=== PATIENT | female | born 1945 | race Caucasian/White ===

== ENCOUNTER 2017-11-11 16:42 | Inpatient (IN) | payer MEDICARE, OTHER, SELFPAY ==
[2017-11-11] VITALS (7 sets, daily range): BP systolic 105–143; BP diastolic 65–101; PULSE 63–84; RESP 16–19; TEMP 36.4–38.1; O2SAT 96–98; BMI 34.0; BMI 32.2
--- NOTE | 2017-11-11 16:57 | EKG12_ITS ---
Test Reason : WEAKNESS Blood Pressure : / mmHG Vent. Rate : 081 BPM Atrial Rate : 081 BPM P-R Int : 188 ms QRS Dur : 080 ms QT Int : 390 ms P-R-T Axes : 070 006 055 degrees QTc Int : 453 ms Sinus rhythm with marked sinus arrhythmia Otherwise normal ECG Confirmed by KRISTY ROMEO, ARACELI ([id number]), online editor BRYANT GONGORA ([id number]) on 11/12/2017 1:45:58 PM Referred By: PAWEL/AMY Confirmed By:ARACELI WAGNER MD
--- NOTE | 2017-11-11 16:57 | CT_ITS ---
STUDY: CT BRAIN WITHOUT CONTRAST REASON FOR EXAM: Female, 72 years old. Confusion and right-sided weakness. RADIATION DOSAGE (If Supplied By Facility): CTDIvol = ( 60.81 ) mGy, DLP = ( 1135.50 ) mGycm TECHNIQUE: Transaxial CT imaging of the brain was performed without administration of intravenous contrast material. Multiplanar reformations are submitted for interpretation. Individualized dose optimization techniques were used for this CT. COMPARISON: CT of the head dated March 31, 2014. FINDINGS: Normal soft tissue structures. There is hyperostosis frontalis internus. There is mild cerebral atrophy with widening of the extra-axial spaces and ventricular dilatation. There are areas of decreased attenuation within the white matter tracts of the supratentorial brain, consistent with microvascular disease changes. Normal basal ganglia and thalami. Normal brainstem. Normal cerebellum. There is no intracranial hemorrhage. There is mild atherosclerotic calcification of intracranial arteries. Normal visualized paranasal sinuses. CT/Brain/Head without Contrast IMPRESSION: 1. Chronic involutional changes of the brain. 2. No CT evidence of acute intracranial hemorrhage. Electronically Signed: Jessie Gibson MD at 18:32 EST , Service support ,
--- NOTE | 2017-11-11 17:02 | ED.VISSUMM ---
- ER Visit Summary Date of Service: 11/11/17 Chief Complaint: Weakness History of Present Illness: The patient is a 72 F sent over from primary care physician's office with progressive weakness for the past 1 week, worse over the past 2 or 3 days. They advised that she is a history of prior stroke and they are not sure she may be having a new stroke. Patient complains of generalized weakness with a cough. She does report having a low-grade fever. Physical Examination: Blood pressure is 150/101, temperature 100.5, heart rate 84, respiratory rate 18, pulse ox 96% on 4 L nasal cannula. She is chronically on 4 L of oxygen secondary to pulmonary fibrosis. Head and neck examination reveals mild left facial droop. Heart is regular rate and rhythm. Lung sounds are grossly clear. Abdomen is soft nontender. NIH score is 1 for left facial droop. She has good strength and sensation in the extremities on testing. Test Results: EKG is sinus 81 with no sign of acute ischemia. Two-view chest x-ray shows changes consistent with COPD and pulmonary fibrosis. No acute disease noted. CT the head shows chronic involutional changes. CBC is significant only for platelet count of 143,000. Chemistry studies are normal. Troponin and lactate are normal. Influenza swab is negative. Blood cultures were sent. Emergency Department Course and Treatment: Patient was given Tylenol. On repeat evaluation temperature is 99.3. Per the , urine was checked in the PCPs office and was negative for infection. At this time patient has a fever with uncertain etiology. She also has generalized weakness and decline with left facial droop. She will be admitted for further workup and evaluation. Treatment Plan: [] Disposition: Admit Impression: 1. Fever, uncertain etiology 2. Weakness 3. Left facial droop This note was generated with [employer] dictation software. It may contain incorrect words, spelling, and punctuation that were not noted in review of the chart prior to signing ED Disposition - Plan for ED Patient: Chief Complaint: Weakness Referrals: Elsa Velázquez DO [Primary Care Provider] -
[2017-11-11] MEDS: 0.9% Normal Saline 1,000 ML 150 ML IV (17:17)
[2017-11-11] MEDS: Acetaminophen 325 MG Tablet 650 MG PO (17:17)
[2017-11-11 17:43] LABS: Absolute Lymphocyte Count 1.84 X10^3/ul (0.83-4.51); Absolute Neutrophil Count 4.3 X10^3/uL (2.0-7.7); Basophil# 0.02 X10^3/uL; Basophil% 0.3 % (0-1); Eosinophil# 0.14 X10^3/uL; Eosinophils% 2.1 % (0-5); Hematocrit 39.2 % (37-47); Hemoglobin 13.2 g/dl (12.0-15.0); Lymphocyte # 1.84 X10^3/ul (4.0); Lymphocyte % 27.6 % (19-41); Mean Corp Hgb Conc 33.7 g/gl (32-36); Mean Corpuscular Hgb 32.7 pg (27.0-32.0); Monocyte# 0.35 X10^3/uL; Monocyte% 5.3 % (0-10); Neutrophil # 4.31 X10^3/uL (2.7-7.7); Neutrophil % 64.7 % (47-70); POSITIVE COUNT NO; POSITIVE DIFFERENTIAL NO; POSITIVE MORPHOLOGY NO; Platelet Count 143 K/mm3 (150-450); RBC Distribution Width CV 13.9 % (11.6-14.6); RBC Distribution Width SD 48.9 fl (35.1-43.9); Red Blood Count 4.04 M/mm3 (4.2-5.4); White Blood Count 6.7 K/mm3 (4.4-11.0)
[2017-11-11 17:46] LABS: Lactic Acid 1.8 mmol/L (0.4-2.0)
[2017-11-11 17:54] LABS: Anion Gap 8 (5-15); BUN 17 mg/dL (7-18); BUN/Creat Ratio 23.4 RATIO (10-20); Calcium,Total 9.4 mg/dL (8.5-10.1); Chloride 104 mmol/L (98-107); Creatinine, Serum 0.73 mg/dL (0.55-1.02); EST Glomerular Filtration Rate 84 mL/min (>60); Est Glom Filt Rate - Afr Amer 101 mL/min (>60); Estimated Creatinine Clearance 44.56 ml/min; Glucose 98 mg/dL (74-106); Potassium 4.1 mmol/L (3.5-5.1); Sodium Level 141 mmol/L (136-145)
--- NOTE | 2017-11-11 17:58 | RAD_ITS ---
STUDY: X-RAY CHEST REASON FOR EXAM: Female, 72 years old. Weakness with cough. TECHNIQUE: PA and lateral views of the chest. COMPARISON: May 23, 2016. FINDINGS: There is hyperinflation of the lungs consistent with chronic obstructive lung disease (COPD). There is interstitial thickening visible within the right upper lobe and right and left lung bases probably secondary to pulmonary fibrosis. There is a calcified nodule within the posterior lung best seen on the lateral radiograph. There is unchanged since the previous study. There is no demonstrated pleural abnormality. Normal size heart. There are calcified mediastinal and hilar lymph nodes. Normal visualized pulmonary arteries. There is atherosclerotic tortuosity of the aortic arch and descending thoracic aorta. There is demineralization of the osseous structures. There is increased thoracic kyphosis. Normal visualized ribs, clavicles, and shoulders. There is no demonstrated abnormality of the visualized soft tissue structures of the upper abdomen. RAD/Chest PA and Lateral IMPRESSION: 1. COPD without radiographic evidence of acute cardiopulmonary disease. 2. Probable sequela of pulmonary fibrosis. Electronically Signed: Jessie Gibson MD at 18:49 EST , Service support ,
--- NOTE | 2017-11-11 20:13 | PCM.HP.STD ---
Problem List (1) Metabolic encephalopathy Status: Acute (2) Sinusitis Status: Acute (3) Dementia Status: Chronic Qualifiers: Dementia type: Alzheimer's disease Alzheimer's disease onset: unspecified onset Dementia behavioral disturbance: without behavioral disturbance Qualified Code(s): G30.9 - Alzheimer's disease, unspecified; F02.80 - Dementia in other diseases classified elsewhere without behavioral disturbance (4) Cough productive of purulent sputum Status: Acute (5) Shortness of breath Status: Acute (6) Bipolar disorder Status: Chronic (7) Chronic obstructive lung disease Status: Chronic (8) Esophageal reflux Status: Chronic (9) Essential tremor Status: Chronic (10) Hx of breast cancer Status: Chronic (11) Hypothyroidism Status: Chronic (12) Irritable bowel syndrome Status: Chronic (13) Pulmonary fibrosis Status: Chronic History of Present Illness Date of Admission: 11/11/17 Chief Complaint: confusion The patient is a 72 year old F presents w confusion. Pt has dementia, but over the past week, has been having fragmented sentences and more frequently asking what they were talking about. brought her to the ED for evaluation. In ED her labs were unremarkable, CXR showed chronic changes, but she did have a fever of 38.1 Pt has a myriad of complaints, many are chronic (N/V/D, abd pain, dysuria, sinus tenderness). also notes pt having increased falls. [] Past Medical History Past Medical History (Chronic Problems): Chronic Problems Dementia (Chronic) Hypothyroidism (Chronic) Hx of breast cancer (Chronic) Esophageal reflux (Chronic) Chronic obstructive lung disease (Chronic) Bipolar disorder (Chronic) Pulmonary fibrosis (Chronic) Essential tremor (Chronic) Irritable bowel syndrome (Chronic) Allergies ragweed pollen Allergy (Verified 02/04/17 17:40) Chest tightness Home Medications: Ambulatory Orders Medication Instructions Recorded Albuterol Aerosols [Ventolin 2.5 mg INHALATION Q6HWA.RT 05/18/15 Aerosols] Albuterol Sulfate [Proventil Hfa] 6.7 gm IH Q6H PRN PRN 05/18/15 Atorvastatin Calcium [Lipitor] 10 mg PO QHS 05/18/15 Buspirone HCl 10 mg PO TID 05/18/15 Furosemide 20 mg PO DAILY 05/18/15 Gabapentin [Neurontin] 400 mg PO TIDCM 05/18/15 Ipratropium/Albuterol Respimat 1 puff INHALATION 4X/DAY PRN PRN 05/18/15 [Combivent Respimat Inhal [place]] Levothyroxine Sodium [Levoxyl] 125 mcg PO MOTUWETHFR 05/18/15 Lorazepam [Ativan] 1 mg PO BID 05/18/15 Oxybutynin Chloride [Ditropan Xl] 10 mg PO DAILY 05/18/15 Pantoprazole Sodium [Protonix] 40 mg PO BID 05/18/15 Sertraline HCl [Zoloft] 150 mg PO DAILY 05/18/15 Trazodone HCl [Desyrel] 200 tab PO QHS 05/18/15 Ondansetron [Zofran Odt] 4 mg PO Q8H PRN PRN #10 tablet 05/23/16 Zolpidem Tartrate [Ambien] 10 mg PO QHS PRN 05/23/16 Aspirin [Aspirin, Baby] 81 mg PO DAILY@0800 11/11/17 Benztropine Mesylate 1 mg PO TID 11/11/17 Diphenoxylate HCl/Atropine 1 tab PO 4X/DAY PRN PRN 11/11/17 [Diphenoxylate-Atrop 2.5-0.025] Donepezil HCl [Aricept] 10 mg PO DAILY 11/11/17 Iron Polysaccharide Complex 150 mg PO DAILY 11/11/17 [Ferrex 150] Lorazepam [Ativan] 0.5 mg PO DAILY PRN PRN 11/11/17 Sertraline HCl [Zoloft] 200 mg PO DAILY 11/11/17 Sumatriptan Succinate [Imitrex] 50 mg PO .X1 PRN 11/11/17 Ziprasidone HCl [Geodon] 40 mg PO DAILY 11/11/17 Surgical History: appendectomy, cholecystectomy, hysterectomy, - - Recent surgery for anal fissure Lumpectomy for breast cancer Partial thyroidectomy Hysterectomy Cholecystectomy Psychiatric History: Anxiety, 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 - *Family History Paternal History Items: - - Lung cancer Maternal History Items: Cancer Sibling History Items: No pertinent history Review of Systems Constitutional: Reports: Chills, Night Sweats, Malaise, Weakness. Denies: Anorexia, Fever Eyes: Denies: Blurred vision, Double vision HEENT: Reports: Sinus Congestion, Sinus Drainage. Denies: Head Aches Cardiovascular: Reports: Chest Pain. Denies: Edema Respiratory: Reports: Shortness of Breath, - - hypoxic when sleeping, per the . Denies: Cough Gastrointestinal: Reports: Abdominal Pain, Diarrhea, Nausea, Vomiting Genitourinary: Reports: Dysuria, Frequency Musculoskeletal: Denies: Joint Pain, Joint Tenderness Skin: Reports: - - rash on scalp. Neurological: Reports: Balance problems - falls. Denies: Blurred vision, Double vision, Slurred speech Psychiatric: Denies: Anxiety, Depression Endocrine: Reports: Heat/ Cold Intolerance. Denies: Change in Body Habitus Hematologic/ Lymphatic: Denies: Easy Bruising, Easy Bleeding, Hx of blood clot VTE Information - Inpt Only VTE Present on Admission: No VTE Pharm Prophylaxis ordered?: Yes Patient Problems: Active and Suspected Problems Metabolic encephalopathy (Acute) Sinusitis (Acute) - Physical Exam General: Alert, - - oriented x 1 (self). pleasantly confusion. follows commands. HEENT: Atraumatic, PERRLA, EOMI, Normocephalic, - - + maxillary and frontal sinus tenderness Oral: Moist Mucosa, No Gingival or Mucosal Lesions/ Ulcerations Neck: No Nodes, Thyroid Normal Size and Texture Lungs: Clear to auscultation, Normal air movement, No rhonchi, No wheeze Cardiovascular: Regular rate, Regular Rhythm, Normal S1, Normal S2 Abdomen: Bowel Sounds Present, Soft, Non Tender, Non-Distended Extremities: No edema, No Calf Tenderness Skin: No rashes, No breakdown Musculoskeletal: No Tenderness to Palpation of Joints or Extremities, No Muscle Wasting Neurological: Cranial nerves II-XII grossly intact, Neuro grossly intact, Motor Exam 5/5 strength throughout, Muscle tone normal Psych/Mental Status: Normal Affect, Appropriate Vital Signs Temp Pulse Resp BP Pulse Ox 38.1 C H 84 18 115/101 H 96 11/11/17 16:43 11/11/17 16:43 11/11/17 16:43 11/11/17 16:43 11/11/17 16:43 Oxygen Flow Rate 4 Oxygen Delivery Method Nasal Cannula Weight: 89.8 kg Body Mass Index (BMI) 34.0 Microbiology Past 72 Hours 11/11/17 17:15 Influenza Types A,B Direct FA (MING) - Final Mucosa - Nose Laboratory Tests Past 24 Hrs 11/11/17 11/11/17 11/11/17 16:53 16:53 16:53 WBC 6.7 RBC 4.04 L Hgb 13.2 Hct 39.2 MCV 97.0 MCH 32.7 H MCHC 33.7 RDW 13.9 RDW Differential 48.9 H Plt Count 143 L MPV 10.0 Immature Gran % (Auto) 0.000 Neut % (Auto) 64.7 Lymph % (Auto) 27.6 [place] % (Auto) 5.3 Eos % (Auto) 2.1 Baso % (Auto) 0.3 Absolute Neuts (auto) 4.3 Absolute Lymphs (auto) 1.84 Total Counted Not Reportable Sodium 141 Potassium 4.1 Chloride 104 Carbon Dioxide 29.0 Anion Gap 8 BUN 17 Creatinine 0.73 Estim Creat Clear Calc 44.56 Est GFR (MDRD) Af Amer 101 Est GFR (MDRD) Non-Af 84 BUN/Creatinine Ratio 23.4 H Glucose 98 Lactic Acid 1.8 Calcium 9.4 Troponin I < 0.02 Clinical Impression(s) from Imaging Studies Brain CT 11/11/17 16:57 IMPRESSION: 1. Chronic involutional changes of the brain. 2. No CT evidence of acute intracranial hemorrhage. Electronically Signed: Jessie Gibson MD at 18:32 EST , Service support , Chest X-Ray 11/11/17 17:58 IMPRESSION: 1. COPD without radiographic evidence of acute cardiopulmonary disease. 2. Probable sequela of pulmonary fibrosis. Electronically Signed: Jessie Gibson MD at 18:49 EST , Service support , Assessment/Plan Active and Suspected Problems Metabolic encephalopathy (Acute) Sinusitis (Acute) 1. Metabolic encephalopathy pt already w impaired cognition d/t dementia pt now worsened with underlying infection (presumed sinusitis) no neuro deficits. noted left facial droop when mouth is lax, but able to smile with equal facial mvmts, therefore, I do not feel this a stroke-like process 2. suspected acute sinusitis + sinus tenderness + fever will start augmentin 3. dementia complicating care continue aricept I will hold pt's neurontin as it may make confusion worse. additionally, I will make her ativan PRN, rather than scheduled. may consider d/camille Vanegas if symptoms persist 4. DVT proph: LMWH 5. falls PT/OT eval and treat Advanced care planning: DW patient and her for 10 minutes in addition to the history and physical: DNRCCA, no intubation and no PEG tubes in the event of dysphagia. Code Visit Inpatient E&M: 01523 Init Hosp L3 Procedures: 56072 Advncd Care Plan 30 Min
--- NOTE | 2017-11-11 20:26 | HP.PCM_ITS ---
Problem List (1) Metabolic encephalopathy Status: Acute (2) Sinusitis Status: Acute (3) Dementia Status: Chronic Qualifiers: Dementia type: Alzheimer's disease Alzheimer's disease onset: unspecified onset Dementia behavioral disturbance: without behavioral disturbance Qualified Code(s): G30.9 - Alzheimer's disease, unspecified; F02.80 - Dementia in other diseases classified elsewhere without behavioral disturbance (4) Cough productive of purulent sputum Status: Acute (5) Shortness of breath Status: Acute (6) Bipolar disorder Status: Chronic (7) Chronic obstructive lung disease Status: Chronic (8) Esophageal reflux Status: Chronic (9) Essential tremor Status: Chronic (10) Hx of breast cancer Status: Chronic (11) Hypothyroidism Status: Chronic (12) Irritable bowel syndrome Status: Chronic (13) Pulmonary fibrosis Status: Chronic History of Present Illness Date of Admission: 11/11/17 Chief Complaint: confusion The patient is a 72 year old F presents w confusion. Pt has dementia, but over the past week, has been having fragmented sentences and more frequently asking what they were talking about. brought her to the ED for evaluation. In ED her labs were unremarkable, CXR showed chronic changes, but she did have a fever of 38.1 Pt has a myriad of complaints, many are chronic (N/V/D, abd pain, dysuria, sinus tenderness). also notes pt having increased falls. [] Past Medical History Past Medical History (Chronic Problems): Chronic Problems Dementia (Chronic) Hypothyroidism (Chronic) Hx of breast cancer (Chronic) Esophageal reflux (Chronic) Chronic obstructive lung disease (Chronic) Bipolar disorder (Chronic) Pulmonary fibrosis (Chronic) Essential tremor (Chronic) Irritable bowel syndrome (Chronic) Allergies ragweed pollen Allergy (Verified 02/04/17 17:40) Chest tightness Home Medications: Ambulatory Orders Medication Instructions Recorded Albuterol Aerosols [Ventolin 2.5 mg INHALATION Q6HWA.RT 05/18/15 Aerosols] Albuterol Sulfate [Proventil Hfa] 6.7 gm IH Q6H PRN PRN 05/18/15 Atorvastatin Calcium [Lipitor] 10 mg PO QHS 05/18/15 Buspirone HCl 10 mg PO TID 05/18/15 Furosemide 20 mg PO DAILY 05/18/15 Gabapentin [Neurontin] 400 mg PO TIDCM 05/18/15 Ipratropium/Albuterol Respimat 1 puff INHALATION 4X/DAY PRN PRN 05/18/15 [Combivent Respimat Inhal [place]] Levothyroxine Sodium [Levoxyl] 125 mcg PO MOTUWETHFR 05/18/15 Lorazepam [Ativan] 1 mg PO BID 05/18/15 Oxybutynin Chloride [Ditropan Xl] 10 mg PO DAILY 05/18/15 Pantoprazole Sodium [Protonix] 40 mg PO BID 05/18/15 Sertraline HCl [Zoloft] 150 mg PO DAILY 05/18/15 Trazodone HCl [Desyrel] 200 tab PO QHS 05/18/15 Ondansetron [Zofran Odt] 4 mg PO Q8H PRN PRN #10 tablet 05/23/16 Zolpidem Tartrate [Ambien] 10 mg PO QHS PRN 05/23/16 Aspirin [Aspirin, Baby] 81 mg PO DAILY@0800 11/11/17 Benztropine Mesylate 1 mg PO TID 11/11/17 Diphenoxylate HCl/Atropine 1 tab PO 4X/DAY PRN PRN 11/11/17 [Diphenoxylate-Atrop 2.5-0.025] Donepezil HCl [Aricept] 10 mg PO DAILY 11/11/17 Iron Polysaccharide Complex 150 mg PO DAILY 11/11/17 [Ferrex 150] Lorazepam [Ativan] 0.5 mg PO DAILY PRN PRN 11/11/17 Sertraline HCl [Zoloft] 200 mg PO DAILY 11/11/17 Sumatriptan Succinate [Imitrex] 50 mg PO .X1 PRN 11/11/17 Ziprasidone HCl [Geodon] 40 mg PO DAILY 11/11/17 Surgical History: appendectomy, cholecystectomy, hysterectomy, - - Recent surgery for anal fissure Lumpectomy for breast cancer Partial thyroidectomy Hysterectomy Cholecystectomy Psychiatric History: Anxiety, 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 - *Family History Paternal History Items: - - Lung cancer Maternal History Items: Cancer Sibling History Items: No pertinent history Review of Systems Constitutional: Reports: Chills, Night Sweats, Malaise, Weakness. Denies: Anorexia, Fever Eyes: Denies: Blurred vision, Double vision HEENT: Reports: Sinus Congestion, Sinus Drainage. Denies: Head Aches Cardiovascular: Reports: Chest Pain. Denies: Edema Respiratory: Reports: Shortness of Breath, - - hypoxic when sleeping, per the . Denies: Cough Gastrointestinal: Reports: Abdominal Pain, Diarrhea, Nausea, Vomiting Genitourinary: Reports: Dysuria, Frequency Musculoskeletal: Denies: Joint Pain, Joint Tenderness Skin: Reports: - - rash on scalp. Neurological: Reports: Balance problems - falls. Denies: Blurred vision, Double vision, Slurred speech Psychiatric: Denies: Anxiety, Depression Endocrine: Reports: Heat/ Cold Intolerance. Denies: Change in Body Habitus Hematologic/ Lymphatic: Denies: Easy Bruising, Easy Bleeding, Hx of blood clot VTE Information - Inpt Only VTE Present on Admission: No VTE Pharm Prophylaxis ordered?: Yes Patient Problems: Active and Suspected Problems Metabolic encephalopathy (Acute) Sinusitis (Acute) - Physical Exam General: Alert, - - oriented x 1 (self). pleasantly confusion. follows commands. HEENT: Atraumatic, PERRLA, EOMI, Normocephalic, - - + maxillary and frontal sinus tenderness Oral: Moist Mucosa, No Gingival or Mucosal Lesions/ Ulcerations Neck: No Nodes, Thyroid Normal Size and Texture Lungs: Clear to auscultation, Normal air movement, No rhonchi, No wheeze Cardiovascular: Regular rate, Regular Rhythm, Normal S1, Normal S2 Abdomen: Bowel Sounds Present, Soft, Non Tender, Non-Distended Extremities: No edema, No Calf Tenderness Skin: No rashes, No breakdown Musculoskeletal: No Tenderness to Palpation of Joints or Extremities, No Muscle Wasting Neurological: Cranial nerves II-XII grossly intact, Neuro grossly intact, Motor Exam 5/5 strength throughout, Muscle tone normal Psych/Mental Status: Normal Affect, Appropriate Vital Signs Temp Pulse Resp BP Pulse Ox 38.1 C H 84 18 115/101 H 96 11/11/17 16:43 11/11/17 16:43 11/11/17 16:43 11/11/17 16:43 11/11/17 16:43 Oxygen Flow Rate 4 Oxygen Delivery Method Nasal Cannula Weight: 89.8 kg Body Mass Index (BMI) 34.0 Microbiology Past 72 Hours 11/11/17 17:15 Influenza Types A,B Direct FA (MING) - Final Mucosa - Nose Laboratory Tests Past 24 Hrs 11/11/17 11/11/17 11/11/17 16:53 16:53 16:53 WBC 6.7 RBC 4.04 L Hgb 13.2 Hct 39.2 MCV 97.0 MCH 32.7 H MCHC 33.7 RDW 13.9 RDW Differential 48.9 H Plt Count 143 L MPV 10.0 Immature Gran % (Auto) 0.000 Neut % (Auto) 64.7 Lymph % (Auto) 27.6 [place] % (Auto) 5.3 Eos % (Auto) 2.1 Baso % (Auto) 0.3 Absolute Neuts (auto) 4.3 Absolute Lymphs (auto) 1.84 Total Counted Not Reportable Sodium 141 Potassium 4.1 Chloride 104 Carbon Dioxide 29.0 Anion Gap 8 BUN 17 Creatinine 0.73 Estim Creat Clear Calc 44.56 Est GFR (MDRD) Af Amer 101 Est GFR (MDRD) Non-Af 84 BUN/Creatinine Ratio 23.4 H Glucose 98 Lactic Acid 1.8 Calcium 9.4 Troponin I < 0.02 Clinical Impression(s) from Imaging Studies Brain CT 11/11/17 16:57 IMPRESSION: 1. Chronic involutional changes of the brain. 2. No CT evidence of acute intracranial hemorrhage. Electronically Signed: Jessie Gibson MD at 18:32 EST , Service support , Chest X-Ray 11/11/17 17:58 IMPRESSION: 1. COPD without radiographic evidence of acute cardiopulmonary disease. 2. Probable sequela of pulmonary fibrosis. Electronically Signed: Jessie Gibson MD at 18:49 EST , Service support , Assessment/Plan Active and Suspected Problems Metabolic encephalopathy (Acute) Sinusitis (Acute) 1. Metabolic encephalopathy * pt already w impaired cognition d/t dementia * pt now worsened with underlying infection (presumed sinusitis) * no neuro deficits. noted left facial droop when mouth is lax, but able to smile with equal facial mvmts, therefore, I do not feel this a stroke-like process 2. suspected acute sinusitis * + sinus tenderness + fever * will start augmentin 3. dementia * complicating care * continue aricept * I will hold pt's neurontin as it may make confusion worse. additionally, I will make her ativan PRN, rather than scheduled. * may consider d/camille Vanegas if symptoms persist 4. DVT proph: LMWH 5. falls * PT/OT eval and treat Advanced care planning: DW patient and her for 10 minutes in addition to the history and physical: DNRCCA, no intubation and no PEG tubes in the event of dysphagia. Code Visit Inpatient E&M: 16876 Init Hosp L3 Procedures: 51131 Advncd Care Plan 30 Min
[2017-11-11] MEDS: Pantoprazole Sodium 40 MG Tablet PO (23:21)
[2017-11-11] MEDS: Benztropine 2 MG Tablet 1 MG PO (23:21)
[2017-11-11] MEDS: Amox/Clavulanate 875 MG Tablet PO (23:22)
[2017-11-11] MEDS: Atorvastatin Calcium 10 MG Tablet PO (23:23)
[2017-11-11] MEDS: Albuterol 2.5 MG/3 ML VIAL.NEB. INHALATION (23:31)
[2017-11-12] VITALS (7 sets, daily range): BP systolic 114–137; BP diastolic 53–86; PULSE 63–88; RESP 16–18; TEMP 36.3–37.2; O2SAT 95–98; BMI 32.2
[2017-11-12] MEDS: Benztropine 2 MG Tablet 1 MG PO ×3 (05:23→21:56)
[2017-11-12] MEDS: Levothyroxine 125 MCG Tablet PO (05:23)
[2017-11-12] MEDS: Ipratropium/Albuterol Sulfate 3 ML AMPUL.NEB INHALATION ×3 (07:44→19:29)
--- NOTE | 2017-11-12 09:31 | PCM.PN.HOSP ---
Patient Problems: Active and Suspected Problems Metabolic encephalopathy (Acute) Sinusitis (Acute) Subjective: Feeling good. Anxious to go home. Vitals/I&O's: Vital Signs Temp Pulse Resp BP Pulse Ox 37.2 C 88 18 124/86 H 98 11/12/17 09:04 11/12/17 09:04 11/12/17 09:04 11/12/17 09:04 11/12/17 09:04 Oxygen Flow Rate 4 Oxygen Delivery Method Venturi Mask Weight: 85.2 kg Body Mass Index (BMI) 32.2 Intake and Output for Last 24 Hours 11/10/17 11/11/17 11/12/17 23:59 23:59 23:59 Intake Total 1400 / 1400 Balance 1400 / 1400 General: Alert, Oriented x3, Cooperative, No apparent distress HEENT: Atraumatic, Normocephalic Neck: No Nodes, Thyroid Normal Size and Texture Lungs: Clear to auscultation, Normal air movement, No rhonchi, No wheeze Cardiovascular: Regular rate, Regular Rhythm, Normal S1, Normal S2, No murmurs Abdomen: Bowel Sounds Present, Soft, Non Tender, Non-Distended, No Hepato-splenomegaly Extremities: No edema, No Calf Tenderness Skin: No rashes, No breakdown Musculoskeletal: No Tenderness to Palpation of Joints or Extremities Psych/Mental Status: Normal Affect, Appropriate Current Medications Acetaminophen (Tylenol) 650 mg PO Q6H PRN PRN PRN Reason: Mild Pain (1-3)/Temp > 100.7 F Albuterol Sulfate (Ventolin Aerosols) 2.5 mg INHALATION Q4H PRN PRN PRN Reason: SHORTNESS OF BREATH Last Admin: 11/11/17 23:31 Dose: 2.5 mg Albuterol/Ipratropium (Duoneb) 3 ml INHALATION Q6HWA.RT [facility] Last Admin: 11/12/17 07:44 Dose: 3 ml Amoxicillin/Clavulanate Potassium (Augmentin Tablet) 875 mg PO BIDCM [facility] Last Admin: 11/11/17 23:22 Dose: 875 mg Atorvastatin Calcium (Lipitor) 10 mg PO QHS [facility] Last Admin: 11/11/17 23:23 Dose: 10 mg Benztropine Mesylate (Cogentin) 1 mg PO TID [facility] Last Admin: 11/12/17 05:23 Dose: 1 mg Buspirone HCl (Buspar) 10 mg PO TID [facility] Last Admin: 11/12/17 05:23 Dose: 10 mg Diphenoxylate HCl/Atropine (Lomotil) 1 tablet PO 4X/DAY PRN PRN PRN Reason: Diarrhea Donepezil HCl (Aricept) 10 mg PO DAILY [facility] Enoxaparin Sodium (Lovenox) 40 mg SC DAILY@1000 [facility] Furosemide (Lasix) 20 mg PO DAILY [facility] Levothyroxine Sodium (Synthroid) 125 mcg PO MoTuWeThFr@0600 [facility] Last Admin: 11/12/17 05:23 Dose: 125 mcg Loperamide HCl (Imodium) 2 mg PO Q4H PRN PRN PRN Reason: Diarrhea Lorazepam (Ativan) 0.5 mg PO BID PRN PRN PRN Reason: ANXIETY Magnesium Hydroxide (Milk Of Magnesia) 30 ml PO DAILY PRN PRN PRN Reason: Constipation Nutritional Formula (Lactose Free) (Ensure Enlive) 120 ml PO 4X/DAY [facility] Ondansetron HCl (Zofran Odt) 4 mg PO Q8H PRN PRN PRN Reason: NAUSEA Ondansetron HCl (Zofran) 4 mg IV Q8H PRN PRN PRN Reason: NAUSEA Pantoprazole Sodium (Protonix) 40 mg PO BID [facility] Last Admin: 11/11/17 23:21 Dose: 40 mg Polysaccharide Iron Complex (Ferrex 150) 150 mg PO DAILY [facility] Rizatriptan Benzoate (Maxalt) 10 mg PO .X1 PRN PRN PRN Reason: MIGRAINE Sertraline HCl (Zoloft) 200 mg PO DAILY [facility] Sodium Chloride () 5 - 30 ml IV UD PRN PRN Reason: SALINE FLUSH Tolterodine Tartrate (Detrol La) 2 mg PO DAILY [facility] Trazodone HCl (Desyrel) 200 mg PO QHS [facility] Last Admin: 11/11/17 23:22 Dose: 200 mg Ziprasidone (Geodon) 40 mg PO DAILY [facility] Zolpidem Tartrate (Ambien (Generic)) 5 mg PO QHS PRN PRN Reason: SLEEP Assessment/Plan Active and Suspected Problems Metabolic encephalopathy (Acute) Sinusitis (Acute) 1. Metabolic encephalopathy pt already w impaired cognition d/t dementia pt now worsened with underlying infection (presumed sinusitis) no neuro deficits. noted left facial droop when mouth is lax, but able to smile with equal facial mvmts, therefore, I do not feel this a stroke-like process 2. suspected acute sinusitis + sinus tenderness + fever Continue Augmentin and treat through 221. 3. dementia complicating care continue aricept I will hold pt's neurontin as it may make confusion worse. additionally, I will make her ativan PRN, rather than scheduled. may consider d/cing Guilherme if symptoms persist 4. DVT proph: LMWH 5. falls PT/OT eval and treat 6. Disposition: pEnding physical and occupational therapy's evaluation and 's ability to accept the patient if she is requiring higher level of needs. Code Visit Inpatient E&M: 74025 Subs Hosp L2
--- NOTE | 2017-11-12 09:34 | PN_ITS ---
Patient Problems: Active and Suspected Problems Metabolic encephalopathy (Acute) Sinusitis (Acute) Subjective: Feeling good. Anxious to go home. Vitals/I&O's: Vital Signs Temp Pulse Resp BP Pulse Ox 37.2 C 88 18 124/86 H 98 11/12/17 09:04 11/12/17 09:04 11/12/17 09:04 11/12/17 09:04 11/12/17 09:04 Oxygen Flow Rate 4 Oxygen Delivery Method Venturi Mask Weight: 85.2 kg Body Mass Index (BMI) 32.2 Intake and Output for Last 24 Hours 11/10/17 11/11/17 11/12/17 23:59 23:59 23:59 Intake Total 1400 / 1400 Balance 1400 / 1400 General: Alert, Oriented x3, Cooperative, No apparent distress HEENT: Atraumatic, Normocephalic Neck: No Nodes, Thyroid Normal Size and Texture Lungs: Clear to auscultation, Normal air movement, No rhonchi, No wheeze Cardiovascular: Regular rate, Regular Rhythm, Normal S1, Normal S2, No murmurs Abdomen: Bowel Sounds Present, Soft, Non Tender, Non-Distended, No Hepato- splenomegaly Extremities: No edema, No Calf Tenderness Skin: No rashes, No breakdown Musculoskeletal: No Tenderness to Palpation of Joints or Extremities Psych/Mental Status: Normal Affect, Appropriate Current Medications Acetaminophen (Tylenol) 650 mg PO Q6H PRN PRN PRN Reason: Mild Pain (1-3)/Temp > 100.7 F Albuterol Sulfate (Ventolin Aerosols) 2.5 mg INHALATION Q4H PRN PRN PRN Reason: SHORTNESS OF BREATH Last Admin: 11/11/17 23:31 Dose: 2.5 mg Albuterol/Ipratropium (Duoneb) 3 ml INHALATION Q6HWA.RT [facility] Last Admin: 11/12/17 07:44 Dose: 3 ml Amoxicillin/Clavulanate Potassium (Augmentin Tablet) 875 mg PO BIDCM [facility] Last Admin: 11/11/17 23:22 Dose: 875 mg Atorvastatin Calcium (Lipitor) 10 mg PO QHS [facility] Last Admin: 11/11/17 23:23 Dose: 10 mg Benztropine Mesylate (Cogentin) 1 mg PO TID [facility] Last Admin: 11/12/17 05:23 Dose: 1 mg Buspirone HCl (Buspar) 10 mg PO TID [facility] Last Admin: 11/12/17 05:23 Dose: 10 mg Diphenoxylate HCl/Atropine (Lomotil) 1 tablet PO 4X/DAY PRN PRN PRN Reason: Diarrhea Donepezil HCl (Aricept) 10 mg PO DAILY [facility] Enoxaparin Sodium (Lovenox) 40 mg SC DAILY@1000 [facility] Furosemide (Lasix) 20 mg PO DAILY [facility] Levothyroxine Sodium (Synthroid) 125 mcg PO MoTuWeThFr@0600 [facility] Last Admin: 11/12/17 05:23 Dose: 125 mcg Loperamide HCl (Imodium) 2 mg PO Q4H PRN PRN PRN Reason: Diarrhea Lorazepam (Ativan) 0.5 mg PO BID PRN PRN PRN Reason: ANXIETY Magnesium Hydroxide (Milk Of Magnesia) 30 ml PO DAILY PRN PRN PRN Reason: Constipation Nutritional Formula (Lactose Free) (Ensure Enlive) 120 ml PO 4X/DAY [facility] Ondansetron HCl (Zofran Odt) 4 mg PO Q8H PRN PRN PRN Reason: NAUSEA Ondansetron HCl (Zofran) 4 mg IV Q8H PRN PRN PRN Reason: NAUSEA Pantoprazole Sodium (Protonix) 40 mg PO BID [facility] Last Admin: 11/11/17 23:21 Dose: 40 mg Polysaccharide Iron Complex (Ferrex 150) 150 mg PO DAILY [facility] Rizatriptan Benzoate (Maxalt) 10 mg PO .X1 PRN PRN PRN Reason: MIGRAINE Sertraline HCl (Zoloft) 200 mg PO DAILY [facility] Sodium Chloride () 5 - 30 ml IV UD PRN PRN Reason: SALINE FLUSH Tolterodine Tartrate (Detrol La) 2 mg PO DAILY [facility] Trazodone HCl (Desyrel) 200 mg PO QHS [facility] Last Admin: 11/11/17 23:22 Dose: 200 mg Ziprasidone (Geodon) 40 mg PO DAILY [facility] Zolpidem Tartrate (Ambien (Generic)) 5 mg PO QHS PRN PRN Reason: SLEEP Assessment/Plan Active and Suspected Problems Metabolic encephalopathy (Acute) Sinusitis (Acute) 1. Metabolic encephalopathy * pt already w impaired cognition d/t dementia * pt now worsened with underlying infection (presumed sinusitis) * no neuro deficits. noted left facial droop when mouth is lax, but able to smile with equal facial mvmts, therefore, I do not feel this a stroke-like process 2. suspected acute sinusitis * + sinus tenderness + fever * Continue Augmentin and treat through 221. 3. dementia * complicating care * continue aricept * I will hold pt's neurontin as it may make confusion worse. additionally, I will make her ativan PRN, rather than scheduled. * may consider d/cing Guilherme if symptoms persist 4. DVT proph: LMWH 5. falls * PT/OT eval and treat 6. Disposition: * pEnding physical and occupational therapy's evaluation and 's ability to accept the patient if she is requiring higher level of needs. Code Visit Inpatient E&M: 25339 Subs Hosp L2
[2017-11-12] MEDS: Furosemide 20 MG Tablet PO (09:53)
[2017-11-12] MEDS: Donepezil HCl 10 MG Tablet PO (09:53)
[2017-11-12] MEDS: Amox/Clavulanate 875 MG Tablet PO ×2 (09:53→17:47)
[2017-11-12] MEDS: Iron Polysaccharide Complex 150 MG CAPSULE PO (09:53)
[2017-11-12] MEDS: Tolterodine Tartrate 2 MG CAP.SA PO (09:53)
[2017-11-12] MEDS: Enoxaparin 40 MG/0.4 ML Syringe SC (09:53)
[2017-11-12] MEDS: Pantoprazole Sodium 40 MG Tablet PO ×2 (09:54→21:56)
[2017-11-12] MEDS: Sertraline 100 MG Tablet 200 MG PO (10:17)
--- NOTE | 2017-11-12 11:10 | CASEMGMT ---
Face to Face with patient for initial transition planning/care coordination assessment. RN CM introduced self and role at [facility], pt voices understanding and consents to assessment at this time. Pt sitting up in chair in no distress at this time. Pt A/O x3 at this time and answers all questions appropriately at this time. Care providers, pharmacy, and demographics verified. See attached link. Pt voice no further concerns/needs at this time. Advised pt to ask for CM if any further questions/concerns/needs arise, voices understanding. CM to follow for any further discharge planning/needs. PLAN: TBD SStjeff RN EDWIN
[2017-11-12] MEDS: Acetaminophen 325 MG Tablet 650 MG PO (15:38)
[2017-11-12] MEDS: Atorvastatin Calcium 10 MG Tablet PO (21:55)
[2017-11-12] MEDS: Zolpidem Tartrate 5 MG Tablet PO (21:55)
[2017-11-12] MEDS: LORazepam 0.5 MG Tablet PO (22:00)
[2017-11-13] VITALS (7 sets, daily range): BP systolic 117–144; BP diastolic 57–93; PULSE 61–90; RESP 16–20; TEMP 36.7–37.1; O2SAT 96–98
[2017-11-13] MEDS: Levothyroxine 125 MCG Tablet PO (05:42)
[2017-11-13] MEDS: Benztropine 2 MG Tablet 1 MG PO ×2 (05:42→14:07)
[2017-11-13] MEDS: Ipratropium/Albuterol Sulfate 3 ML AMPUL.NEB INHALATION ×2 (07:23→13:00)
[2017-11-13] MEDS: Amox/Clavulanate 875 MG Tablet PO ×2 (07:52→16:42)
[2017-11-13] MEDS: Iron Polysaccharide Complex 150 MG CAPSULE PO (09:30)
[2017-11-13] MEDS: Furosemide 20 MG Tablet PO (09:30)
[2017-11-13] MEDS: Tolterodine Tartrate 2 MG CAP.SA PO (09:30)
[2017-11-13] MEDS: Donepezil HCl 10 MG Tablet PO (09:30)
[2017-11-13] MEDS: Pantoprazole Sodium 40 MG Tablet PO (09:30)
[2017-11-13] MEDS: Enoxaparin 40 MG/0.4 ML Syringe SC (09:31)
[2017-11-13] MEDS: Sertraline 100 MG Tablet 200 MG PO (09:31)
[2017-11-13] MEDS: Ondansetron ODT 4 MG Tablet PO (10:57)
--- NOTE | 2017-11-13 13:10 | PCM.PN.HOSP ---
Patient Problems: Active and Suspected Problems Metabolic encephalopathy (Acute) Sinusitis (Acute) Subjective: Vomited after breakfast. Has not tried lunch for fear of vomiting again. C/O headache, Tylenol insufficient. Vitals/I&O's: Vital Signs Temp Pulse Resp BP Pulse Ox 37.1 C 64 18 117/57 L 98 11/13/17 08:00 11/13/17 08:00 11/13/17 08:00 11/13/17 08:00 11/13/17 08:00 Oxygen Flow Rate 5 Oxygen Delivery Method Nasal Cannula Weight: 85.2 kg Body Mass Index (BMI) 32.2 Intake and Output for Last 24 Hours 11/11/17 11/12/17 11/13/17 23:59 23:59 23:59 Intake Total 2240 / 2240 120 / 120 Balance 2240 / 2240 120 / 120 General: Alert, No apparent distress HEENT: Atraumatic, Normocephalic Neck: No Nodes, Thyroid Normal Size and Texture Lungs: Clear to auscultation, Normal air movement, No rhonchi, No wheeze Cardiovascular: Regular rate, Regular Rhythm, Normal S1, Normal S2, No murmurs Abdomen: Bowel Sounds Present, Soft, Non Tender, Non-Distended, No Hepato-splenomegaly Extremities: No edema, No Calf Tenderness Skin: No rashes, No breakdown Psych/Mental Status: Normal Affect, Appropriate Current Medications Acetaminophen (Tylenol) 650 mg PO Q6H PRN PRN PRN Reason: Mild Pain (1-3)/Temp > 100.7 F Last Admin: 11/12/17 15:38 Dose: 650 mg Albuterol Sulfate (Ventolin Aerosols) 2.5 mg INHALATION Q4H PRN PRN PRN Reason: SHORTNESS OF BREATH Last Admin: 11/11/17 23:31 Dose: 2.5 mg Albuterol/Ipratropium (Duoneb) 3 ml INHALATION Q6HWA.RT [facility] Last Admin: 11/13/17 13:00 Dose: 3 ml Amoxicillin/Clavulanate Potassium (Augmentin Tablet) 875 mg PO BIDCM [facility] Last Admin: 11/13/17 07:52 Dose: 875 mg Atorvastatin Calcium (Lipitor) 10 mg PO QHS [facility] Last Admin: 11/12/17 21:55 Dose: 10 mg Benztropine Mesylate (Cogentin) 1 mg PO TID [facility] Last Admin: 11/13/17 05:42 Dose: 1 mg Buspirone HCl (Buspar) 10 mg PO TID [facility] Last Admin: 11/13/17 05:42 Dose: 10 mg Diphenoxylate HCl/Atropine (Lomotil) 1 tablet PO 4X/DAY PRN PRN PRN Reason: Diarrhea Donepezil HCl (Aricept) 10 mg PO DAILY [facility] Last Admin: 11/13/17 09:30 Dose: 10 mg Enoxaparin Sodium (Lovenox) 40 mg SC DAILY@1000 [facility] Last Admin: 11/13/17 09:31 Dose: 40 mg Furosemide (Lasix) 20 mg PO DAILY [facility] Last Admin: 11/13/17 09:30 Dose: 20 mg Levothyroxine Sodium (Synthroid) 125 mcg PO MoTuWeThFr@0600 [facility] Last Admin: 11/13/17 05:42 Dose: 125 mcg Loperamide HCl (Imodium) 2 mg PO Q4H PRN PRN PRN Reason: Diarrhea Lorazepam (Ativan) 0.5 mg PO BID PRN PRN PRN Reason: ANXIETY Last Admin: 11/12/17 22:00 Dose: 0.5 mg Magnesium Hydroxide (Milk Of Magnesia) 30 ml PO DAILY PRN PRN PRN Reason: Constipation Nutritional Formula (Lactose Free) (Ensure Enlive) 120 ml PO 4X/DAY [facility] Last Admin: 11/13/17 09:30 Dose: 120 ml Ondansetron HCl (Zofran Odt) 4 mg PO Q8H PRN PRN PRN Reason: NAUSEA Last Admin: 11/13/17 10:57 Dose: 4 mg Ondansetron HCl (Zofran) 4 mg IV Q8H PRN PRN PRN Reason: NAUSEA Pantoprazole Sodium (Protonix) 40 mg PO BID [facility] Last Admin: 11/13/17 09:30 Dose: 40 mg Polysaccharide Iron Complex (Ferrex 150) 150 mg PO DAILY [facility] Last Admin: 11/13/17 09:30 Dose: 150 mg Rizatriptan Benzoate (Maxalt) 10 mg PO .X1 PRN PRN PRN Reason: MIGRAINE Sertraline HCl (Zoloft) 200 mg PO DAILY [facility] Last Admin: 11/13/17 09:31 Dose: 200 mg Sodium Chloride () 5 - 30 ml IV UD PRN PRN Reason: SALINE FLUSH Tolterodine Tartrate (Detrol La) 2 mg PO DAILY [facility] Last Admin: 11/13/17 09:30 Dose: 2 mg Trazodone HCl (Desyrel) 200 mg PO QHS [facility] Last Admin: 11/12/17 21:56 Dose: 200 mg Ziprasidone (Geodon) 40 mg PO DAILY [facility] Last Admin: 11/13/17 09:31 Dose: Not Given Zolpidem Tartrate (Ambien (Generic)) 5 mg PO QHS PRN PRN Reason: SLEEP Last Admin: 11/12/17 21:55 Dose: 5 mg Assessment/Plan Active and Suspected Problems Metabolic encephalopathy (Acute) Sinusitis (Acute) 1. Metabolic encephalopathy pt already w impaired cognition d/t dementia pt now worsened with underlying infection (presumed sinusitis) no neuro deficits. noted left facial droop when mouth is lax, but able to smile with equal facial mvmts, therefore, I do not feel this a stroke-like process improved overall. 2. suspected acute sinusitis + sinus tenderness + fever Continue Augmentin and treat through 11/20. 3. dementia complicating care continue aricept I will hold pt's neurontin as it may make confusion worse. additionally, I will make her ativan PRN, rather than scheduled. may consider d/cing Geodon if symptoms persist 4. DVT proph: LMWH 5. falls PT/OT eval and treat 6. Disposition: eventually to home with [facility] 7. Vomiting chronic process w/o clear etiology check abd xray on zofran PRN 8. Migraine Ibuprofen Code Visit Inpatient E&M: 96482 Subs Hosp L2
--- NOTE | 2017-11-13 13:18 | PN_ITS ---
Patient Problems: Active and Suspected Problems Metabolic encephalopathy (Acute) Sinusitis (Acute) Subjective: Vomited after breakfast. Has not tried lunch for fear of vomiting again. C/O headache, Tylenol insufficient. Vitals/I&O's: Vital Signs Temp Pulse Resp BP Pulse Ox 37.1 C 64 18 117/57 L 98 11/13/17 08:00 11/13/17 08:00 11/13/17 08:00 11/13/17 08:00 11/13/17 08:00 Oxygen Flow Rate 5 Oxygen Delivery Method Nasal Cannula Weight: 85.2 kg Body Mass Index (BMI) 32.2 Intake and Output for Last 24 Hours 11/11/17 11/12/17 11/13/17 23:59 23:59 23:59 Intake Total 2240 / 2240 120 / 120 Balance 2240 / 2240 120 / 120 General: Alert, No apparent distress HEENT: Atraumatic, Normocephalic Neck: No Nodes, Thyroid Normal Size and Texture Lungs: Clear to auscultation, Normal air movement, No rhonchi, No wheeze Cardiovascular: Regular rate, Regular Rhythm, Normal S1, Normal S2, No murmurs Abdomen: Bowel Sounds Present, Soft, Non Tender, Non-Distended, No Hepato- splenomegaly Extremities: No edema, No Calf Tenderness Skin: No rashes, No breakdown Psych/Mental Status: Normal Affect, Appropriate Current Medications Acetaminophen (Tylenol) 650 mg PO Q6H PRN PRN PRN Reason: Mild Pain (1-3)/Temp > 100.7 F Last Admin: 11/12/17 15:38 Dose: 650 mg Albuterol Sulfate (Ventolin Aerosols) 2.5 mg INHALATION Q4H PRN PRN PRN Reason: SHORTNESS OF BREATH Last Admin: 11/11/17 23:31 Dose: 2.5 mg Albuterol/Ipratropium (Duoneb) 3 ml INHALATION Q6HWA.RT [facility] Last Admin: 11/13/17 13:00 Dose: 3 ml Amoxicillin/Clavulanate Potassium (Augmentin Tablet) 875 mg PO BIDCM [facility] Last Admin: 11/13/17 07:52 Dose: 875 mg Atorvastatin Calcium (Lipitor) 10 mg PO QHS [facility] Last Admin: 11/12/17 21:55 Dose: 10 mg Benztropine Mesylate (Cogentin) 1 mg PO TID [facility] Last Admin: 11/13/17 05:42 Dose: 1 mg Buspirone HCl (Buspar) 10 mg PO TID [facility] Last Admin: 11/13/17 05:42 Dose: 10 mg Diphenoxylate HCl/Atropine (Lomotil) 1 tablet PO 4X/DAY PRN PRN PRN Reason: Diarrhea Donepezil HCl (Aricept) 10 mg PO DAILY [facility] Last Admin: 11/13/17 09:30 Dose: 10 mg Enoxaparin Sodium (Lovenox) 40 mg SC DAILY@1000 [facility] Last Admin: 11/13/17 09:31 Dose: 40 mg Furosemide (Lasix) 20 mg PO DAILY [facility] Last Admin: 11/13/17 09:30 Dose: 20 mg Levothyroxine Sodium (Synthroid) 125 mcg PO MoTuWeThFr@0600 [facility] Last Admin: 11/13/17 05:42 Dose: 125 mcg Loperamide HCl (Imodium) 2 mg PO Q4H PRN PRN PRN Reason: Diarrhea Lorazepam (Ativan) 0.5 mg PO BID PRN PRN PRN Reason: ANXIETY Last Admin: 11/12/17 22:00 Dose: 0.5 mg Magnesium Hydroxide (Milk Of Magnesia) 30 ml PO DAILY PRN PRN PRN Reason: Constipation Nutritional Formula (Lactose Free) (Ensure Enlive) 120 ml PO 4X/DAY [facility] Last Admin: 11/13/17 09:30 Dose: 120 ml Ondansetron HCl (Zofran Odt) 4 mg PO Q8H PRN PRN PRN Reason: NAUSEA Last Admin: 11/13/17 10:57 Dose: 4 mg Ondansetron HCl (Zofran) 4 mg IV Q8H PRN PRN PRN Reason: NAUSEA Pantoprazole Sodium (Protonix) 40 mg PO BID [facility] Last Admin: 11/13/17 09:30 Dose: 40 mg Polysaccharide Iron Complex (Ferrex 150) 150 mg PO DAILY [facility] Last Admin: 11/13/17 09:30 Dose: 150 mg Rizatriptan Benzoate (Maxalt) 10 mg PO .X1 PRN PRN PRN Reason: MIGRAINE Sertraline HCl (Zoloft) 200 mg PO DAILY [facility] Last Admin: 11/13/17 09:31 Dose: 200 mg Sodium Chloride () 5 - 30 ml IV UD PRN PRN Reason: SALINE FLUSH Tolterodine Tartrate (Detrol La) 2 mg PO DAILY [facility] Last Admin: 11/13/17 09:30 Dose: 2 mg Trazodone HCl (Desyrel) 200 mg PO QHS [facility] Last Admin: 11/12/17 21:56 Dose: 200 mg Ziprasidone (Geodon) 40 mg PO DAILY [facility] Last Admin: 11/13/17 09:31 Dose: Not Given Zolpidem Tartrate (Ambien (Generic)) 5 mg PO QHS PRN PRN Reason: SLEEP Last Admin: 11/12/17 21:55 Dose: 5 mg Assessment/Plan Active and Suspected Problems Metabolic encephalopathy (Acute) Sinusitis (Acute) 1. Metabolic encephalopathy * pt already w impaired cognition d/t dementia * pt now worsened with underlying infection (presumed sinusitis) * no neuro deficits. noted left facial droop when mouth is lax, but able to smile with equal facial mvmts, therefore, I do not feel this a stroke-like process * improved overall. 2. suspected acute sinusitis * + sinus tenderness + fever * Continue Augmentin and treat through 11/20. 3. dementia * complicating care * continue aricept * I will hold pt's neurontin as it may make confusion worse. additionally, I will make her ativan PRN, rather than scheduled. * may consider d/cing Geodon if symptoms persist 4. DVT proph: LMWH 5. falls * PT/OT eval and treat 6. Disposition: * eventually to home with [facility] 7. Vomiting * chronic process w/o clear etiology * check abd xray * on zofran PRN 8. Migraine * Ibuprofen Code Visit Inpatient E&M: 56191 Subs Hosp L2
--- NOTE | 2017-11-13 13:50 | RAD_ITS ---
STUDY: X-RAY - ABDOMEN/PELVIS REASON FOR EXAM: Female, 72 years old. Vomiting. TECHNIQUE: AP supine and upright views of the abdomen and pelvis. COMPARISON: None. FINDINGS: Minimal increased markings at the left lung base suggestive of linear atelectasis and/or scarring. There is a moderate amount of colonic fecal material. There is no demonstrated free abdominal air. The patient is status post cholecystectomy. Normal soft tissue structures. Degenerative changes of the symphysis pubis. RAD/Abd Decub and/or Erect(Portabl IMPRESSION: Moderate amount of fecal material is seen in the colon. Electronically Signed: Jules Jerry MD at 14:30 EST Tel [phone], Service support ,
[2017-11-13] MEDS: Ibuprofen 600 MG Tablet PO (14:06)
--- NOTE | 2017-11-13 16:13 | PCM.DC ---
- Discharge Diagnoses Current Active Problems: Current Active and Chronic Problems Metabolic encephalopathy (Acute) Sinusitis (Acute) Dementia (Chronic) You will use the following diet at home:: No restrictions Your food should be the consistency of: Regular Your liquids should be the consistency of: Regular/Thin Discharge Activity: Return to Normal Activity Call your doctor if you observe: Fever of 101 or Higher, Shortness of breath Allergies/Adverse Reactions: Allergies ragweed pollen Allergy (Verified 02/04/17 17:40) Chest tightness Medications to take at Discharge Albuterol Aerosols [Ventolin Aerosols] 2.5 mg INHALATION Q6HWA.RT 05/18/15 Albuterol Sulfate [Proventil Hfa] 6.7 gm IH Q6H PRN PRN 05/18/15 Atorvastatin Calcium [Lipitor] 10 mg PO QHS 05/18/15 Buspirone HCl 10 mg PO TID 05/18/15 Furosemide 20 mg PO DAILY 05/18/15 Ipratropium/Albuterol Respimat [Combivent Respimat Inhal [place]] 1 puff INHALATION 4X/DAY PRN PRN 05/18/15 Levothyroxine Sodium [Levoxyl] 125 mcg PO MOTUWETHFR 05/18/15 Oxybutynin Chloride [Ditropan Xl] 10 mg PO DAILY 05/18/15 Pantoprazole Sodium [Protonix] 40 mg PO BID 05/18/15 Trazodone HCl [Desyrel] 200 tab PO QHS 05/18/15 Ondansetron [Zofran Odt] 4 mg PO Q8H PRN PRN #10 tablet 05/23/16 Zolpidem Tartrate [Ambien] 10 mg PO QHS PRN 05/23/16 Aspirin [Aspirin, Baby] 81 mg PO DAILY@0800 11/11/17 Benztropine Mesylate 1 mg PO TID 11/11/17 Diphenoxylate HCl/Atropine [Diphenoxylate-Atrop 2.5-0.025] 1 tab PO 4X/DAY PRN PRN 11/11/17 Donepezil HCl [Aricept] 10 mg PO DAILY 11/11/17 Iron Polysaccharide Complex [Ferrex 150] 150 mg PO DAILY 11/11/17 Lorazepam [Ativan] 0.5 mg PO DAILY PRN PRN 11/11/17 Sertraline HCl [Zoloft] 200 mg PO DAILY 11/11/17 Sumatriptan Succinate [Imitrex] 50 mg PO .X1 PRN 11/11/17 Ziprasidone HCl [Geodon] 40 mg PO DAILY 11/11/17 Amox/Clavulanate Tablet [Augmentin Tablet] 875 mg PO BIDCM #15 tab 11/13/17 Lorazepam [Ativan] 1 mg PO BID PRN #0 11/13/17 The following prescriptions were given: Amox/Clavulanate Tablet [Augmentin Tablet] 875 mg PO BIDCM #15 tab Primary Care Physician: Elsa Velázquez DO [Primary Care Provider] - Within 2 Weeks Proposed Discharge Date: 11/13/17
--- NOTE | 2017-11-13 16:17 | DS.PCM_ITS ---
Discharge Date and Diagnosis - Problem List Patient Problems: Active and Suspected Problems Metabolic encephalopathy (Acute) Sinusitis (Acute) Date of Admission: 11/11/17 Date of Discharge: 11/13/17 - Primary Discharge Diagnosis Active and Suspected Problems Metabolic encephalopathy (Acute) Sinusitis (Acute) - Secondary Discharge Diagnosis Chronic Problems Dementia (Chronic) Hypothyroidism (Chronic) Hx of breast cancer (Chronic) Esophageal reflux (Chronic) Chronic obstructive lung disease (Chronic) Bipolar disorder (Chronic) Pulmonary fibrosis (Chronic) Essential tremor (Chronic) Irritable bowel syndrome (Chronic) Hospital Course and Treatment Imaging Results: 11/13/17 13:50 XRAY Abdomen [Abd Decub and/or Erect(Portabl] [RAD] Urgent Operations: None Procedures: None Summary of Care Provided: The patient is a 72 year old F presents with increased confusion from home. Patient underwent initial workup came back unremarkable. Patient did have a fever upon presentation and patient did have some reproducible maxillary sinus tenderness. I feel that the patient had metabolic encephalopathy due to an underlying sinus infection and an individual with dementia but also on numerous potentiating medications, including gabapentin, Ativan, Geodon and Ambien. I discontinued the gabapentin upon the patient's arrival. Patient mental status has improved greatly. Patient is tolerating the antibiotics. Patient was seen by physical therapy who has recommended home health care. Patient has been falling at home but does have good support otherwise with her . I would recommend for this patient to reevaluate her medications and consider weaning off of her Ativan and also consider discontinuing the Geodon. [] Discharge Diet: No Restrictions Discharge Activity: Return to Normal Activity Call your doctor if you observe: Fever of 101 or Higher, Shortness of breath Home Medications: Medications to take at Discharge Albuterol Aerosols [Ventolin Aerosols] 2.5 mg INHALATION Q6HWA.RT 05/18/15 Albuterol Sulfate [Proventil Hfa] 6.7 gm IH Q6H PRN PRN 05/18/15 Atorvastatin Calcium [Lipitor] 10 mg PO QHS 05/18/15 Buspirone HCl 10 mg PO TID 05/18/15 Furosemide 20 mg PO DAILY 05/18/15 Ipratropium/Albuterol Respimat [Combivent Respimat Inhal [place]] 1 puff INHALATION 4X/DAY PRN PRN 05/18/15 Levothyroxine Sodium [Levoxyl] 125 mcg PO MOTUWETHFR 05/18/15 Oxybutynin Chloride [Ditropan Xl] 10 mg PO DAILY 05/18/15 Pantoprazole Sodium [Protonix] 40 mg PO BID 05/18/15 Trazodone HCl [Desyrel] 200 tab PO QHS 05/18/15 Ondansetron [Zofran Odt] 4 mg PO Q8H PRN PRN #10 tablet 05/23/16 Zolpidem Tartrate [Ambien] 10 mg PO QHS PRN 05/23/16 Aspirin [Aspirin, Baby] 81 mg PO DAILY@0800 11/11/17 Benztropine Mesylate 1 mg PO TID 11/11/17 Diphenoxylate HCl/Atropine [Diphenoxylate-Atrop 2.5-0.025] 1 tab PO 4X/DAY PRN PRN 11/11/17 Donepezil HCl [Aricept] 10 mg PO DAILY 11/11/17 Iron Polysaccharide Complex [Ferrex 150] 150 mg PO DAILY 11/11/17 Lorazepam [Ativan] 0.5 mg PO DAILY PRN PRN 11/11/17 Sertraline HCl [Zoloft] 200 mg PO DAILY 11/11/17 Sumatriptan Succinate [Imitrex] 50 mg PO .X1 PRN 11/11/17 Ziprasidone HCl [Geodon] 40 mg PO DAILY 11/11/17 Amox/Clavulanate Tablet [Augmentin Tablet] 875 mg PO BIDCM #15 tab 11/13/17 Lorazepam [Ativan] 1 mg PO BID PRN #0 11/13/17 Following Prescrptions Were Given to Patient: Amox/Clavulanate Tablet [Augmentin Tablet] 875 mg PO BIDCM #15 tab Primary Care Physician: Elsa Velázquez DO [Primary Care Provider] - Within 2 Weeks Disposition: Home Minutes spent on discharge:: 35 Patient Condition:: Fair Meaningful Use Info Meaningful Use Diagnoses (Choose all that apply): None applicable Code Visit Inpatient E&M: 50459 Disch Hosp
== END 2017-11-13 16:54 | disposition home health service (06) | DRG 152 ==
LOC: ED 17:03 → PCU 20:16
PROVIDERS: Emergency Provider Emergency Medicine; Family Provider Internal Medicine; PCP Internal Medicine
DX: J01.90 Acute sinusitis, unspecified (principal); G93.41 Metabolic encephalopathy; J84.10 Pulmonary fibrosis, unspecified; F03.90 Unspecified dementia, unspecified severity, without behavioral disturbance, psychotic disturbance, mood disturbance, and anxiety; J44.9 Chronic obstructive pulmonary disease, unspecified; E03.9 Hypothyroidism, unspecified; Z85.3 Personal history of malignant neoplasm of breast; K21.9 Gastro-esophageal reflux disease without esophagitis; F31.9 Bipolar disorder, unspecified; G25.0 Essential tremor; K58.9 Irritable bowel syndrome, unspecified; Z87.891 Personal history of nicotine dependence; Z66 Do not resuscitate
CPT/HCPCS: 36415; 70450; 71046; 74019; 80048; 83605; 84484; 85025; 87040; 87804; 93005; 94640; 97110; 97116; 97162; 97166; 97802; 99285; J7030; A4216

== ENCOUNTER → 2018-02-20 18:11 | Outpatient (CLI) | payer MEDICARE, OTHER, SELFPAY | PROVIDERS: Family Provider Internal Medicine; PCP Internal Medicine; Visit Provider Internal Medicine Critical Care Medicine | DX: J96.11 Chronic respiratory failure with hypoxia (principal); J96.12 Chronic respiratory failure with hypercapnia; J44.9 Chronic obstructive pulmonary disease, unspecified | CPT/HCPCS: 87070; 87077; 87186; 87205 ==

== ENCOUNTER → 2018-03-04 10:12 | Outpatient (CLI) | payer MEDICARE, OTHER, SELFPAY ==
--- NOTE | 2018-03-04 10:12 | DT_ITS ---
This patient was seen during an EMR downtime March 03, 2018 - March 10, 2018. This patient may have a combination of paper and electronic documentation or all paper documentation. All documentation is viewable within the e-chart portion of [email or web address] for each patient visit.
--- NOTE | 2018-03-10 11:05 | CPS ---
Testing attempted by Loren Ortiz RRT. Patient unable to keep a seal on the mouth piece and unable to follow directions for testing.
== END ==
PROVIDERS: Family Provider Internal Medicine; PCP Internal Medicine; Visit Provider Nurse Practitioner Acute Care
DX: J44.9 Chronic obstructive pulmonary disease, unspecified (principal)

== ENCOUNTER → 2022-11-19 | Outpatient (CLI) | payer MEDICARE, OTHER, MEDICAID, SELFPAY ==
--- NOTE | 2022-11-19 16:01 | RAD_ITS ---
STUDY: X-RAY - RIGHT ANKLE REASON FOR EXAM: Female, 77 years old. Injury. Pain. TECHNIQUE: 4 view(s) of the ankle. COMPARISON: None. FINDINGS: Osteopenia. Oblique fracture of the distal fibula with minimal impaction and displacement. Osteoarthritic changes. Lateral soft tissue swelling. RAD/Ankle min 3 Views IMPRESSION: Osteopenia with distal fibular fracture and lateral soft tissue swelling as described. Electronically Signed: Jose De Jesus Saba, at 9:22 EST ,
== END | disposition home or self-care (01) ==
LOC: RAD.FUTURE 15:52 → MTRAD 15:53
PROVIDERS: PCP Internal Medicine; Referring Provider Internal Medicine; Visit Provider Internal Medicine
DX: S99.911A Unspecified injury of right ankle, initial encounter (principal)
CPT/HCPCS: 73610

== ENCOUNTER → 2023-04-29 | Outpatient (CLI) | payer MEDICARE, MEDICAID, SELFPAY | END | disposition home or self-care (01) | LOC: SL 12:54 | PROVIDERS: PCP Internal Medicine; Referring Provider Internal Medicine; Visit Provider Internal Medicine | DX: I63.9 Cerebral infarction, unspecified (principal); J44.9 Chronic obstructive pulmonary disease, unspecified; J96.11 Chronic respiratory failure with hypoxia; J96.12 Chronic respiratory failure with hypercapnia ==

== ENCOUNTER → 2023-05-07 | Outpatient (CLI) | payer MEDICARE, OTHER, MEDICAID, SELFPAY ==
[2023-05-07 13:36] LABS: Allen Test Positive; Base Excess 4 mmol/L (-2 to +2); Bicarbonate 27.5 mmol/L (22-26); Blood Gas Specimen Type ART; O2 Delivery Device Cannula; PO2 58 mmHG (75-100); SITE L Brach; SO2 91 % (95-99); Total Carbon Dioxide 29 mmol/L; pCO2 39.4 mmHg (35-45); pH 7.45 (7.35-7.45)
== END | disposition home or self-care (01) ==
LOC: PSN 13:09
PROVIDERS: PCP Internal Medicine; Visit Provider Internal Medicine
DX: R09.02 Hypoxemia (principal)
CPT/HCPCS: 36600; 82803

== ENCOUNTER → 2023-05-08 | Outpatient (CLI) | payer MEDICARE, MEDICAID, SELFPAY ==
--- NOTE | 2023-05-08 15:19 | BI_ITS ---
MAMMOGRAPHY - BILATERAL SCREENING REASON FOR EXAM: Female, 78 years old. Routine annual screening examination. PERTINENT HISTORY: Personal history of breast cancer. History of prior right lumpectomy with chemotherapy and radiation therapy. TECHNIQUE: Digital bilateral breast kamila (3D mammographic acquisition) in the CC and MLO projections. 2-D mediolateral oblique (MLO) and craniocaudad (CC) views of both breasts were obtained. CAD: Full Field Digital Mammography with Computer Added Detection was performed. COMPARISON: Comparison is made with prior study dated December 12, 2011. FINDINGS: Breast Composition: The breasts are heterogeneously dense, which may obscure small masses. There are no dominant masses or suspicious calcifications. The patient is status post lumpectomy in the upper outer aspect of the right breast with resultant postoperative scarring. No other significant abnormalities are identified. There has been no significant change since the prior study. BI/SCRN MAMM (CAD)W/KAMILA BILAT IMPRESSION: Stable bilateral screening mammogram. Yearly follow-up mammogram recommended. (A) ASSESSMENT CATEGORY: BIRADS Category 2: Benign. A letter regarding these results will be sent to the patient by the facility within 30 days. Approximately 10% of breast cancers are not detected by mammography. A normal mammogram should not delay biopsy of a clinically suspicious abnormality. [id number] Electronically Signed: Jules Jerry MD at 8:44 EDT ,
--- NOTE | 2023-05-08 15:24 | BD_ITS ---
STUDY: DUAL ENERGY X-RAY ABSORPTIOMETRY / DXA REASON FOR EXAM: Female, 78 years old. [id number] TECHNIQUE: Bone Mineral Density (BMD) measurements of lumbar spine and bilateral hips were obtained. COMPARISON: None. FINDINGS: Lumbar Spine (L1-L4): g/cm2 (0.834) / T-score (-1.7) / Z-score (0.8) Findings are suggestive of osteopenia with a moderate fracture risk. Left Femur Total: g/cm2 (0.714) / T-score (-1.9) / Z-score (0.0) Left Femoral Neck: g/cm2 (0.510) / T-score (-3.1) / Z-score (-0.9) Right Femur Total: g/cm2 (0.676) / T-score (-2.2) / Z-score (-0.3) Right Femoral Neck: g/cm2 (0.523) / T-score (-2.9) / Z-score (-0.8) BD/Dexa Bone Density Study IMPRESSION: The patient is considered osteoporotic as outlined below according to World [place] Organization (WHO) criteria with a high fracture risk. Reference Information: The T-score is the number of standard deviations above or below the standard which is normal for young adults at their peak bone mineral density. The World Health Organization (WHO) interprets the T-scores as follows: Above -1 Normal bone density Between -1 and -2.5 Osteopenia Equal to / or below -2.5 Osteoporosis As a practical clinical guideline, osteopenia may be graded as follows: Mild -1 through -1.5 Moderate -1.6 through -2.0 Severe -2.1 through -2.4 The Z-score is the number of standard deviations above or below age-matched controls. A Z-score of less than -1.5 would be considered abnormal. References: 1. NIH Osteoporosis and Related Bone Diseases www osteo.org 2. International Society for Clinical Densitometry www iscd.org 3. National Osteoporosis Foundation www nof.org Electronically Signed: Jules Jerry MD at 15:37 EDT ,
== END | disposition home or self-care (01) ==
PROVIDERS: PCP Internal Medicine; Referring Provider Internal Medicine; Visit Provider Internal Medicine
DX: Z78.0 Asymptomatic menopausal state (principal); Z12.31 Encounter for screening mammogram for malignant neoplasm of breast
CPT/HCPCS: 77063; 77067; 77080; 94762

== ENCOUNTER 2023-11-13 14:16 | Emergency (ER) | payer MEDICARE, MEDICAID, SELFPAY ==
[2023-11-13 14:17] VITALS: BP 89/61; PULSE 77; RESP 13; TEMP 36.8; O2SAT 95
--- NOTE | 2023-11-13 14:40 | EDS_ITS ---
HPI History of Present Illness Chief Complaint: Shortness of Breath [facility] Medical History Affective bipolar disorder Bipolar disorder Chronic obstructive lung disease Chronic respiratory failure Cough productive of purulent sputum CVA (cerebral vascular accident) DD (diverticular disease) Dementia Esophageal reflux Essential tremor Family history of hypertension Family history of lung cancer Hx of breast cancer Hypersomnia Hypokalemia Hypothyroidism Hypoxia Irritable bowel syndrome Metabolic encephalopathy Osteoporosis Palpitations Personal history of malignant neoplasm of breast Pulmonary fibrosis Shortness of breath Sinusitis Stage 2 moderate COPD by GOLD classification Home Medications atorvastatin 10 mg tablet 10 mg PO QHS CHOLESTEROL 05/18/15 [History Last Taken 05/17/15] buspirone 10 mg tablet 10 mg PO TID MENTAL HEALTH 05/18/15 [History Last Taken 11/11/17 09:30] furosemide 40 mg tablet 20 mg PO DAILY DIURETIC/WATER PILL 05/18/15 [History Last Taken 11/11/17 09:30] oxybutynin chloride 10 mg tablet,extended release 24 hr 10 mg PO DAILY bladder 05/18/15 [History Last Taken 05/18/15] pantoprazole 40 mg tablet,delayed release 40 mg PO BID ACID REFLUX 05/18/15 [History Last Taken 05/18/15] trazodone 100 mg tablet 200 tab PO QHS anxiety 05/18/15 [History Last Taken 11/10/17] aspirin 81 mg chewable tablet 81 mg PO DAILY@0800 HEALTH MAINTENANCE 11/11/17 [ History Last Taken 11/11/17 09:30] benztropine 1 mg tablet 1 mg PO TID TREMORS 11/11/17 [History Last Taken 11/11/17 09:30] diphenoxylate-atropine 2.5 mg-0.025 mg tablet 1 tab PO 4X/DAY PRN Diarrhea 0 11/11/17 [History Last Taken Unknown] donepezil 10 mg tablet 10 mg PO DAILY MEMORY 11/11/17 [History Last Taken 11/11/17 09:30] sertraline 100 mg tablet 200 mg PO DAILY MENTAL HEALTH 11/11/17 [History Last Taken Unknown] sumatriptan succinate 50 mg tablet 50 mg PO .ONCE 11/11/17 [History Last Taken Unknown] ziprasidone HCl 40 mg capsule 40 mg PO DAILY MENTAL HEALTH 11/11/17 [History Last Taken Unknown] linezolid 600 mg tablet 600 mg PO BID #20 tabs 03/12/18 [Rx Last Taken Unknown] lorazepam 0.5 mg tablet (Ativan) 0.5 mg PO BID 07/20/19 [History Last Taken Unknown] benzonatate 100 mg capsule 200 mg (2 x 100 mg) PO TID PRN cough #30 caps 10/31/23 [Rx Last Taken Unknown] albuterol sulfate 2.5 mg/3 mL (0.083 %) solution for nebulization 2.5 mg inhalation Q6H PRN shortness of breath or wheezing 11/13/23 [History Last Taken Unknown] atorvastatin 20 mg tablet 20 mg PO DAILY CHOLESTEROL 11/13/23 [History Last Taken Unknown] budesonide-formoterol HFA 160 mcg-4.5 mcg/actuation aerosol inhaler 2 puff inhalation BID 11/13/23 [History Last Taken Unknown] ondansetron 4 mg disintegrating tablet 4 mg PO Q8H PRN Nausea 11/13/23 [History Last Taken Unknown] Allergy/AdvReac Type Severity Reaction Status Date / Time ragweed pollen Allergy Chest Verified 11/13/23 14:19 tightness Family History Mother Hypertension Lung cancer Surgical History History of cataract extraction History of cholecystectomy History of hysterectomy History of thyroidectomy Social History Smoking Status: Former smoker Tobacco: How many years used: 40 second hand exposure: Yes alcohol intake: current alcohol intake frequency: holidays/special occasions only substance use type: does not use caffeine: No what type of physical activity do you participate in: none EXAM Physical Exam Const Vital Signs: 11/13/23 14:17 Temperature 98.3 F Temperature Source Oral Pulse Rate 77 Respiratory Rate 3 L Blood Pressure 89/61 L Blood Pressure Mean 70 Pulse Ox 95 Oxygen Delivery Method Nasal Cannula Oxygen Flow Rate (L/min) 2 MDM MDM MDM Narrative Medical decision making narrative: HISTORY OF PRESENT ILLNESS: 78-year-old female presents with shortness of breath. She notes she has been more short of breath for last 2 days. She does note some increase in shortness of breath with lying flat. Notes some mild lower extremity edema as well. She denies history of heart failure however. Denies any bleeding diathesis. She denies any vomiting. Denies any chest pain. Denies any palpitations. Denies any fever but does note a cough that is productive of white sputum. She notes she had the flu 2 weeks ago. She states her cough never went away afterwards. She states she wears 4 L of oxygen at home and today on her typical home oxygen she noted her pulse ox was 90%. Notes Her pulse ox was 99% at home. States she wears 4 L all the time. Per EMS she is 90%. The patient denies recent surgery in the last 4 weeks or immobilization in the last 3 days, denies previous diagnosis of DVT or PE, hemoptysis, unilateral leg swelling or malignancy with treatment the last 6 months or palliative. No estrogen use noted. REVIEW OF SYSTEMS: Pertinent positives: Shortness of breath, orthopnea, lower extremity edema Pertinent negatives: Chest pain, palpitations, bleeding, unilateral leg swelling PHYSICAL EXAM: Nursing triage notes reviewed, Vital signs reviewed Constitutional: please see mdm HENT: MMM Eyes: Pupils equal round and reactive to light, Extraocular muscles intact Neck: No stridor, no JVD, full neck ROM Lungs: Clear to auscultation, No wheezing or rales. No increased work of breathing, no conversational dyspnea, no accessory muscle use, no nasal flaring. No respiratory distress noted Heart: Regular rate and rhythm, No murmurs, No rubs and No gallops, 2+ distal pulses (radial, femoral, posterior tibial) in all extremities Abdomen: Soft, there is no tenderness, rigidity, rebound or guarding, no obvious peritoneal signs, no palpable pulsatile abdominal masses, no auscultated abdominal bruit : No CVAT Extremities: Trace edema in bilateral lower extremities Neuro: No focal neurological deficits, cranial nerves II through XII intact, 5/5 strength in all extremities. Intact sensation to light touch in all extremities, 2+ reflexes bilateral patella tendons. Normal gait. No ataxia. Skin: No rash or lesions noted MEDICAL DECISION MAKING: Chief Complaint: Shortness of breath External records reviewed: Imaging reviewed: Echocardiogram from 2015 shows ejection fraction 70% Factors affecting care: COPD, influenza, CVA, bipolar disorder, pulmonary fibrosis, IBS Social determinants of health: none History obtained from others: none Consults: none [facility] Narrative: The patient was initially afebrile, nontoxic-appearing, in no respiratory distress with speaking full sentences. Of note her blood pressures were soft and her maps was above 65. Baseline blood pressure per chart review Show the patient is typically normotensive. IVs were established. She was treated 1 L normal saline. I considered the following differential diagnosis: COPD exacerbation, pneumonia, COVID, RSV, flu, anemia, arrhythmia, ACS, PE, CHF exacerbation I obtained a broad lab and imaging workup to further elucidate the etiology of the patient's complaints. ALL IMAGES (IF OBTAINED) HAVE BEEN PERSONALLY REVIEWED AND INTERPRETED BY MYSELF. CBC with no leukocytosis to suggest systemic range, anemia, noted mild thrombocytopenia EKG with normal sinus rhythm, left axis deviation, no obvious STEMI, no significant changes when compared to prior EKG from 2018 I have personally reviewed the patient's chest x-ray. Chest x-ray is unremarkable for pulmonary edema, pneumothorax, pneumonia or focal cardiopulmonary abnormality. High-sensitivity troponin is negative, no evidence of myocardial ischemia BNP within normal limits suggestive of no volume overload or ventricular stretch Blood pressure improved after 1 L normal saline bolus. Blood pressure was initially 89 systolic improved to 112 systolic. The synthesis of the patient's history, physical exam, labs images suggest no acute life-limiting etiology. Patient low risk Wells score and as such have a low suspicion for PE. There is no signs of volume overload on x-ray with a negative BNP and a low suspicion for CHF. COVID flu RSV were negative. She had no significant anemia. Her lungs were not consistent with acute COPD exacerbation. Unclear etiology however patient is normal vital signs negative lab workup suggest she is appropriate discharge home. The patient and/or family, caregivers express understanding. The patient and/or family, caregivers agrees with the plan. Shared decision making: I will have a discussion with the patient and or visitors regarding risk/benefits of further testing or admission. They will be made aware of of the risk/benefits inherent in this decision they will be given the opportunity to voice understanding. Total critical care time today provided was at least 0 minutes. This excludes separately billable procedures. Critical care time (if documented) is secondary to the patient having high probability of clinically significant/life threatening deterioration in the patient's condition which required my urgent intervention. Impression: 1. Dyspnea 2. Severe COPD 3. Hypotension (resolved) 4. Thrombocytopenia Dispo: Discharge home This note was generated with [employer] dictation software. It may contain incorrect words, spelling, and punctuation that were not noted in review of the chart prior to signing. Discharge Plan Triage Chief Complaint: Shortness of Breath ED Provider: Christiano Zimmerman Dx/Rx/DC Orders Prescriptions: No Action lorazepam [Ativan] 0.5 mg tablet 0.5 mg PO BID benzonatate 100 mg capsule 200 mg PO TID PRN (Reason: cough) Qty: 30 0RF furosemide 40 MG tablet 20 mg PO DAILY atorvastatin 10 MG tablet 10 mg PO QHS oxybutynin chloride 10 MG tablet extended release 24hr 10 mg PO DAILY buspirone 10 MG tablet 10 mg PO TID pantoprazole 40 MG tablet 40 mg PO BID trazodone 100 MG tablet 200 tab PO QHS donepezil 10 MG tablet 10 mg PO DAILY sumatriptan succinate 50 MG tablet 50 mg PO .ONCE ziprasidone HCl 40 MG capsule 40 mg PO DAILY Rx Instructions: TAKE WITH MEALS diphenoxylate-atropine 1 EACH tablet 1 tab PO 4X/DAY PRN (Reason: Diarrhea) benztropine 1 MG tablet 1 mg PO TID sertraline 100 MG tablet 200 mg PO DAILY aspirin 81 MG tablet,chewable 81 mg PO DAILY@0800 atorvastatin 20 mg tablet 20 mg PO DAILY budesonide-formoterol 160-4.5 mcg/actuation HFA aerosol inhaler 2 puff INHALATION BID albuterol sulfate 2.5 mg /3 mL (0.083 %) solution for nebulization 2.5 mg INHALATION Q6H PRN (Reason: shortness of breath or wheezing) Rx Instructions: USE EVERY 6 HOURS NEEDED WHILE AWAKE. Clean the plasticware in hot soapy water after each use, and disinfect in 50% white vinegar once weekly. ondansetron 4 MG tablet 4 mg PO Q8H PRN (Reason: Nausea) linezolid 600 mg tablet 600 mg PO BID Qty: 20 0RF Primary Care Provider: Elsa Velázquez Referrals: Elsa Velázquez, [Primary Care Provider] -
--- NOTE | 2023-11-13 14:42 | EKG12_ITS ---
Test Reason : SOB Blood Pressure : / mmHG Vent. Rate : 064 BPM Atrial Rate : 064 BPM P-R Int : 220 ms QRS Dur : 074 ms QT Int : 422 ms P-R-T Axes : 076 -14 053 degrees QTc Int : 435 ms Sinus rhythm with sinus arrhythmia with 1st degree A-V block Otherwise normal ECG Confirmed by Isaac Selby ([id number]), rewrite editor JOVANNA DEJESUS ([id number]) on 11/14/2023 8:03:04 AM Referred By: Confirmed By:Isaac Selby
--- NOTE | 2023-11-13 14:50 | RAD_ITS ---
STUDY: X-RAY CHEST REASON FOR EXAM: Female, 78 years old. Shortness of breath TECHNIQUE: Single AP portable view of the chest. COMPARISON: Comparison is made with prior study July 04, 2023. FINDINGS: EKG electrodes are seen. Hyperinflation. Minimal scarring at the lung bases. There is no demonstrated pleural abnormality. Normal size heart. Normal mediastinum and [place]. Normal visualized pulmonary arteries. There is atherosclerotic calcification of the aortic arch with tortuosity. There are diffuse degenerative changes of the visualized thoracic spine. Dextroscoliosis. There is degenerative osteoarthritis of the bilateral shoulders. Moderate-sized hiatal hernia. RAD/Chest 1 View (Portable) IMPRESSION: Hyperinflation. No acute abnormality is seen. Dextroscoliosis. Moderate sized hiatal hernia. Electronically Signed: Jules Jerry MD at 15:09 EST ,
[2023-11-13 14:53] VITALS: O2SAT 95
[2023-11-13] MEDS: 0.9% Normal Saline (1000mL) 1,000 ML 999 ML IV (14:53)
--- NOTE | 2023-11-13 15:00 | ED.RN ---
PER PATIENT OKAY TO GIVE INFORMATION TO MIRACLE, HER DAUGHTER.
[2023-11-13 15:02] LABS: Absolute Lymphocyte Count 1.66 X10^3/uL (0.83-4.51); Absolute Neutrophil Count 5.8 X10^3/uL (2.0-7.7); Basophil# 0.04 X10^3/uL; Basophil% 0.5 % (0-1); Eosinophil# 0.09 X10^3/uL; Eosinophils% 1.1 % (0-5); Hematocrit 36.2 % (37-47); Hemoglobin 12.3 g/dL (12.0-15.0); Lymphocyte # 1.66 X10^3/ul (0.83-4.51); Lymphocyte % 20.3 % (19-41); Mean Corpuscular Hgb 32.3 pg (27.0-32.0); Monocyte# 0.55 X10^3/uL; Monocyte% 6.7 % (0-10); NRBC Flagged by Analyzer 0 % (0-5); Neutrophil # 5.81 X10^3/uL (2.7-7.7); Platelet Count 144 K/mm3 (150-450); RBC Distribution Width CV 14.4 % (11.6-14.6); RBC Distribution Width SD 49.7 fl (35.1-43.9); Red Blood Count 3.81 M/mm3 (4.2-5.4); White Blood Count 8.2 K/mm3 (4.4-11.0)
[2023-11-13 15:25] LABS: Anion Gap 4 (5-15); BUN 14 mg/dL (7-18); BUN/Creat Ratio 19.5 RATIO (10-20); Calcium,Total 9.6 mg/dL (8.5-10.1); Chloride 105 mmol/L (98-107); Creatinine, Serum 0.72 mg/dL (0.55-1.02); EST Glomerular Filtration Rate 84 mL/min (>60); Est Glom Filt Rate - Afr Amer 101 mL/min (>60); Glucose 171 mg/dL (74-106); Potassium 3.4 mmol/L (3.5-5.1); Sodium Level 142 mmol/L (136-145); Troponin-I HS 6 pg/mL (3.0-54.0)
[2023-11-13 15:26] LABS: BNP,B-Type NATRIURETIC PEPTIDE 27.6 pg/mL (0-100)
[2023-11-13 15:34] VITALS: BP 102/65; PULSE 66; RESP 14; O2SAT 94
[2023-11-13 16:00] VITALS: BP 114/60; PULSE 68; RESP 16; O2SAT 92
[2023-11-13 16:49] VITALS: BP 99/72; PULSE 66; RESP 14; TEMP 36.5; O2SAT 99
== END 2023-11-13 16:50 | disposition home or self-care (01) ==
PROVIDERS: Emergency Provider Emergency Medicine; PCP Internal Medicine; Visit Provider Emergency Medicine
DX: R06.00 Dyspnea, unspecified (principal); J44.0 Chronic obstructive pulmonary disease with (acute) lower respiratory infection; F31.9 Bipolar disorder, unspecified; D69.6 Thrombocytopenia, unspecified; Z87.891 Personal history of nicotine dependence; I95.9 Hypotension, unspecified; Z86.73 Personal history of transient ischemic attack (TIA), and cerebral infarction without residual deficits; Z85.3 Personal history of malignant neoplasm of breast; Z79.899 Other long term (current) drug therapy; Z79.82 Long term (current) use of aspirin; Z90.49 Acquired absence of other specified parts of digestive tract; Z90.710 Acquired absence of both cervix and uterus; Z99.81 Dependence on supplemental oxygen
CPT/HCPCS: 71045; 80048; 83880; 84484; 85025; 87631; 93005; 96360; 96361; 99284; J7030; A4216

== ENCOUNTER 2023-11-29 13:02 | Emergency (ER) | payer MEDICARE, MEDICAID, SELFPAY ==
[2023-11-29 13:03] VITALS: BP 116/57; PULSE 83; RESP 20; TEMP 36.2; O2SAT 91
--- NOTE | 2023-11-29 13:25 | CT_ITS ---
STUDY: CT BRAIN WITHOUT CONTRAST REASON FOR EXAM: Female, 78 years old. Altered mental status RADIATION DOSAGE (If Supplied By Facility): CTDIvol = ( 44.99 ) mGy, DLP = ( 798.92 ) mGycm TECHNIQUE: Transaxial CT imaging of the brain was performed without administration of intravenous contrast material. Individualized dose optimization techniques were used for this CT. COMPARISON: Comparison is made with prior study dated November 11, 2017. FINDINGS: Normal soft tissue structures. Normal calvarium. There is mild cerebral atrophy with widening of the extra-axial spaces and ventricular dilatation. There are areas of decreased attenuation within the white matter tracts of the supratentorial brain, consistent with microvascular disease changes. Normal basal ganglia and thalami. Normal brainstem. Normal cerebellum. There is no intracranial hemorrhage. There are no findings of an acute ischemic infarction. Atherosclerotic calcification of the cavernous portions of the internal carotid arteries bilaterally. Normal visualized paranasal sinuses. CT/Brain/Head without Contrast IMPRESSION: Chronic involutional changes of the brain. Electronically Signed: Jules Jerry MD at 15:00 EST ,
--- NOTE | 2023-11-29 13:26 | EKG12_ITS ---
Test Reason : MH/FELL Blood Pressure : / mmHG Vent. Rate : 067 BPM Atrial Rate : 067 BPM P-R Int : 240 ms QRS Dur : 074 ms QT Int : 420 ms P-R-T Axes : 061 -19 033 degrees QTc Int : 443 ms Sinus rhythm with 1st degree A-V block with Premature atrial complexes in a pattern of bigeminy Nonspecific T wave abnormality Abnormal ECG Confirmed by MG ROMEO, BEAU ([id number]), photo editor CLEMENCIA FELICIANO ([id number]) on 12/02/2023 9:02:10 AM Referred By: Confirmed By:NEETA HOLLIDAY MD
--- NOTE | 2023-11-29 13:30 | EX.ED.DYSGE1 ---
HPI History of Present Illness Chief Complaint: Mental Status Change Informant: patient and family Narrative Narrative: Here with daughter for evaluation for increasing confusion over last couple weeks. From history suddenly lost her spouse in the August 3 months ago, daughter lives in [place], patient went to visit them at that time. She wanted to live alone she returned was doing fine. The last couple weeks with phone calls she is seem to fall asleep more, her phone has been turned down. Daughter reports only communication is when the patient decides to call them. She came to visit her 2 days ago on and off fatigue symptoms. No cough. No vomiting or diarrhea. Denies urinary symptoms. Today's slid off the commode and needed assistance to get up there is no injuries. Denies headache. Patient does have underlying bipolar history. She ambulates with a cane which she needs to do over the past year. She wears chronically 3 L oxygen with COPD history. Prior similar symptoms: No PFSH PFSH Medical History (Updated 11/29/23 @ 17:[address] Onel Durán, DO) Affective bipolar disorder Bipolar disorder Chronic obstructive lung disease Chronic respiratory failure Cough productive of purulent sputum CVA (cerebral vascular accident) DD (diverticular disease) Dementia Esophageal reflux Essential tremor Family history of hypertension Family history of lung cancer Hx of breast cancer Hypersomnia Hypokalemia Hypothyroidism Hypoxia Irritable bowel syndrome Metabolic encephalopathy Osteoporosis Palpitations Personal history of malignant neoplasm of breast Pulmonary fibrosis Shortness of breath Sinusitis Stage 2 moderate COPD by GOLD classification Home Medications atorvastatin 10 mg tablet 10 mg PO QHS CHOLESTEROL 05/18/15 [History Last Taken 05/17/15] buspirone 10 mg tablet 10 mg PO TID MENTAL HEALTH 05/18/15 [History Last Taken 11/11/17 09:30] furosemide 40 mg tablet 20 mg PO DAILY DIURETIC/WATER PILL 05/18/15 [History Last Taken 11/11/17 09:30] oxybutynin chloride 10 mg tablet,extended release 24 hr 10 mg PO DAILY bladder 05/18/15 [History Last Taken 05/18/15] pantoprazole 40 mg tablet,delayed release 40 mg PO BID ACID REFLUX 05/18/15 [History Last Taken 05/18/15] trazodone 100 mg tablet 200 tab PO QHS anxiety 05/18/15 [History Last Taken 11/10/17] aspirin 81 mg chewable tablet 81 mg PO DAILY@0800 HEALTH MAINTENANCE 02/12/18 [History Last Taken 11/11/17 09:30] benztropine 1 mg tablet 1 mg PO TID TREMORS 11/11/17 [History Last Taken 11/11/17 09:30] diphenoxylate-atropine 2.5 mg-0.025 mg tablet 1 tab PO 4X/DAY PRN Diarrhea 11/11/17 [History Last Taken Unknown] donepezil 10 mg tablet 10 mg PO DAILY MEMORY 11/11/17 [History Last Taken 11/11/17 09:30] sertraline 100 mg tablet 200 mg PO DAILY MENTAL HEALTH 11/11/17 [History Last Taken Unknown] sumatriptan succinate 50 mg tablet 50 mg PO .ONCE 11/11/17 [History Last Taken Unknown] ziprasidone HCl 40 mg capsule 40 mg PO DAILY [facility] 11/11/17 [History Last Taken Unknown] linezolid 600 mg tablet 600 mg PO BID #20 tabs 03/12/18 [Rx Last Taken Unknown] lorazepam 0.5 mg tablet (Ativan) 0.5 mg PO BID 07/20/19 [History Last Taken Unknown] benzonatate 100 mg capsule 200 mg (2 x 100 mg) PO TID PRN cough #30 caps 10/31/23 [Rx Last Taken Unknown] albuterol sulfate 2.5 mg/3 mL (0.083 %) solution for nebulization 2.5 mg inhalation Q6H PRN shortness of breath or wheezing 11/13/23 [History Last Taken Unknown] atorvastatin 20 mg tablet 20 mg PO DAILY CHOLESTEROL 11/13/23 [History Last Taken Unknown] budesonide-formoterol HFA 160 mcg-4.5 mcg/actuation aerosol inhaler 2 puff inhalation BID 11/13/23 [History Last Taken Unknown] ondansetron 4 mg disintegrating tablet 4 mg PO Q8H PRN Nausea 11/13/23 [History Last Taken Unknown] Allergy/AdvReac Type Severity Reaction Status Date / Time ragweed pollen Allergy Chest Verified 11/13/23 14:19 tightness Family History Mother Hypertension Lung cancer Surgical History History of cataract extraction History of cholecystectomy History of hysterectomy History of thyroidectomy Social History Smoking Status: Former smoker Tobacco: How many years used: 40 second hand exposure: Yes alcohol intake: current alcohol intake frequency: holidays/special occasions only substance use type: does not use caffeine: No what type of physical activity do you participate in: none ROS ROS ED Constitutional Constitutional ED: Denies chills, fever(s) or sweats Eyes Eyes: Denies change in vision ENT ENT ED: Denies dysphagia or sore throat Cardiovascular Cardiovascular: Denies chest pain, leg edema, palpitations or racing heartbeat Respiratory/Chest Respiratory/Chest: Denies cough, dyspnea or dyspnea on exertion Gastrointestinal Gastrointestinal: Denies abdominal pain, diarrhea, nausea or vomiting Genitourinary Genitourinary ED: Denies dysuria, hematuria or urinary frequency Musculoskeletal Musculoskeletal: Denies back pain, extremity pain or neck pain Integumentary Denies rash or wounds Neurologic Neurologic: Denies headache(s), paresthesias or weakness EXAM Physical Exam Const Vital Signs: 11/29/23 13:03 11/29/23 15:30 11/29/23 16:58 Temperature 97.2 F L 98.5 F Temperature Source Temporal Pulse Rate 83 77 86 Respiratory Rate 20 H 22 H 20 H Blood Pressure 116/57 L 100/44 L 112/63 Blood Pressure Mean 76 62 79 Pulse Ox 91 94 98 Oxygen Delivery Method Nasal Cannula Nasal Cannula Oxygen Flow Rate (L/min) 4 4 Positive well nourished and well developed Constitutional Narrative: Nasal cannula oxygen no respiratory distress. General Appearance ED: well developed and NAD HEENT Reports moist mucous membranes normocephalic and atraumatic Eyes PERRL, EOMs intact bilaterally and conjunctivae normal General Eye ED: Yes normal appearance of both eyes Neck no lymphadenopathy and supple General: Negative for tenderness Chest Wall Chest: Negative for tenderness Resp normal respiratory effort and normal air movement Effort and Inspection: symmetric chest movement; Negative for respiratory distress Cardio regular rate, regular rhythm and no murmurs Peripheral Pulses: pulses 2+ throughout GI normal to inspection, nondistended, normoactive bowel sounds and non-tender Palpation: Negative for guarding or rebound tenderness present Back/Spine no CVA tenderness and no thoracic nor lumbar tenderness Extremity normal to inspection General Extremety ED: Negative for edema or tenderness General Extremity: Negative for edema Neuro oriented x3, CN's II-XII intact bilaterally and no sensory deficits noted Sensorium / Orientation: awake and alert Skin no rashes or lesions noted and no wounds MDM MDM MDM Narrative Medical decision making narrative: Interventions / MDM: Differential diagnosis: Infectious etiology, metabolic etiology Diagnosis considered but do not suspect: Intracranial hemorrhage however CT negative. My EKG interpretation: Sinus rate of 67, first-degree AV block, no ST or T wave changes. Imaging independently reviewed and interpreted by myself: CT brain: No acute process. Two-view chest x-ray: No acute process. External documents reviewed: N/A Test considered but not ordered:N/A ED course: Patient stable on oxygen alert and oriented x 3 on exam. Concerns for increasing confusion, metabolic and infectious workup initiated. Image studies of the brain and chest x-ray. Patient's workup negative Labs stable. CT brain negative chest x-ray negative. Urine with only 100 leukocytes urine culture sent she is denying any symptoms. We discussed daughter who is present along with daughter who is out of state who is an RN. They are reassured with findings they are able to take care of her at home at this point they will work out trying to set up long-term treatment options with the patient. Discussed potential grieving process as sudden loss her less than 3 months ago. Patient does not want to go to a shelter at this time. Family will discuss at home for care of the patient. All questions were answered. Re-evaluation: stable Disposition discussed with patient/family/significant other: Patient and daughter Case discussed with consulting clinician: N/A This note was generated with [employer] dictation software. It may contain incorrect words, spelling, and punctuation that were not noted in checking the note before signing. Lab Data Attestation: I reviewed the patient's lab results. Labs: Laboratory Results - last 24 hr 11/29/23 11/29/23 13:40 15:30 WBC 4.8 RBC 3.66 L Hgb 11.8 L Hct 35.1 L MCV 95.9 MCH 32.2 H MCHC 33.6 RDW Std Deviation 49.2 H RDW Coeff of [place]ho[place] 14.0 Plt Count 112 L MPV 9.6 Immature Gran % (Auto) 0.200 Neut % (Auto) 70.2 H Lymph % (Auto) 19.8 [place] % (Auto) 7.7 Eos % (Auto) 1.5 Baso % (Auto) 0.6 Absolute Neuts (auto) 3.4 Absolute Lymphs (auto) 0.95 Nucleated RBC % 0 Sodium 144 Potassium 3.2 L Chloride 105 Carbon Dioxide 37.0 H Anion Gap 2 L BUN 17 Creatinine 0.67 Est GFR (MDRD) Af Amer 110 Est GFR (MDRD) Non-Af 91 BUN/Creatinine Ratio 25.4 H Glucose 137 H Calcium 9.2 Total Bilirubin 0.40 AST 17 ALT 21 Alkaline Phosphatase 59 Total Protein 6.8 Albumin 3.6 Globulin 3.2 Albumin/Globulin Ratio 1.1 Urine Color Yellow Urine Clarity Clear Urine pH 5.0 Ur Specific [place] 1.025 Urine Protein Negative Urine Glucose (UA) Normal Urine Ketones Negative Urine Occult Blood Negative Urine Nitrite Negative Urine Bilirubin Negative Urine Urobilinogen Normal Ur Leukocyte Esterase 100 H Urine RBC 0 SEEN Urine WBC 0-5 SEEN Ur Squamous Epith Cells 0 SEEN Urine Bacteria 0 SEEN Urine Mucus 0 SEEN Radiography Diagnostic Testing: Clinical Impression(s) from Imaging Studies Brain CT 11/29/23 13:25 IMPRESSION: Chronic involutional changes of the brain. Electronically Signed: Jules Jerry MD at 15:00 EST , Chest X-Ray 11/29/23 14:45 IMPRESSION: Stable increased interstitial markings suggestive of scarring. Moderate size hiatal hernia. Electronically Signed: Jules Jerry MD at 15:01 EST , Discharge Plan Triage Chief Complaint: Mental Status Change ED Provider: Onel Durán Dx/Rx/DC Orders Clinical Impression: Confusion state, Acute hypokalemia Instructions: ED Confusion Prescriptions: No Action lorazepam [Ativan] 0.5 mg tablet 0.5 mg PO BID benzonatate 100 mg capsule 200 mg PO TID PRN (Reason: cough) Qty: 30 0RF furosemide 40 MG tablet 20 mg PO DAILY atorvastatin 10 MG tablet 10 mg PO QHS oxybutynin chloride 10 MG tablet extended release 24hr 10 mg PO DAILY buspirone 10 MG tablet 10 mg PO TID pantoprazole 40 MG tablet 40 mg PO BID trazodone 100 MG tablet 200 tab PO QHS donepezil 10 MG tablet 10 mg PO DAILY sumatriptan succinate 50 MG tablet 50 mg PO .ONCE ziprasidone HCl 40 MG capsule 40 mg PO DAILY Rx Instructions: TAKE WITH MEALS diphenoxylate-atropine 1 EACH tablet 1 tab PO 4X/DAY PRN (Reason: Diarrhea) benztropine 1 MG tablet 1 mg PO TID sertraline 100 MG tablet 200 mg PO DAILY aspirin 81 MG tablet,chewable 81 mg PO DAILY@0800 atorvastatin 20 mg tablet 20 mg PO DAILY budesonide-formoterol 160-4.5 mcg/actuation HFA aerosol inhaler 2 puff INHALATION BID albuterol sulfate 2.5 mg /3 mL (0.083 %) solution for nebulization 2.5 mg INHALATION Q6H PRN (Reason: shortness of breath or wheezing) Rx Instructions: USE EVERY 6 HOURS NEEDED WHILE AWAKE. Clean the plasticware in hot soapy water after each use, and disinfect in 50% white vinegar once weekly. ondansetron 4 MG tablet 4 mg PO Q8H PRN (Reason: Nausea) linezolid 600 mg tablet 600 mg PO BID Qty: 20 0RF Primary Care Provider: Elsa Velázquez Referrals: Elsa Velázquez DO [Primary Care Provider] - 1 Week Activity Restrictions/Additional Instructions: CT brain negative. Chest x-ray 9. Labs stable potassium 3.2 oral replacement given the ED. Normal white count. Urine with 100 leukocytes urine culture sent and pending. You will be contacted if positive that requires treatment otherwise follow-up with your PCP. Disposition Disposition: Home, Self Care Discharge Date/Time: 11/29/23 17:31
[2023-11-29 13:55] LABS: Absolute Lymphocyte Count 0.95 X10^3/uL (0.83-4.51); Absolute Neutrophil Count 3.4 X10^3/uL (2.0-7.7); Basophil# 0.03 X10^3/uL; Basophil% 0.6 % (0-1); Eosinophil# 0.07 X10^3/uL; Eosinophils% 1.5 % (0-5); Hematocrit 35.1 % (37-47); Hemoglobin 11.8 g/dL (12.0-15.0); Lymphocyte # 0.95 X10^3/ul (0.83-4.51); Lymphocyte % 19.8 % (19-41); Mean Corp Hgb Conc 33.6 g/dL (32-36); Mean Corpuscular Hgb 32.2 pg (27.0-32.0); Mean Corpuscular Volume 95.9 fL (81-99); Mean Platelet Vol. 9.6 fl (6.2-12.0); Monocyte# 0.37 X10^3/uL; Monocyte% 7.7 % (0-10); NRBC Flagged by Analyzer 0 % (0-5); Neutrophil # 3.38 X10^3/uL (2.7-7.7); Neutrophil % 70.2 % (47-70); Platelet Count 112 K/mm3 (150-450); RBC Distribution Width SD 49.2 fl (35.1-43.9); Red Blood Count 3.66 M/mm3 (4.2-5.4); White Blood Count 4.8 K/mm3 (4.4-11.0)
[2023-11-29] MEDS: 0.9% Normal Saline (500mL Bag) 500 ML 1000 ML IV (14:04)
[2023-11-29 14:13] LABS: ALB/GLOB Ratio 1.1 RATIO (0.9-2.4); AST(SGOT) 17 U/L (15-37); Alanine Aminotransfer ALT/SGPT 21 U/L (13-56); Albumin, Serum 3.6 g/dL (3.2-5.0); Alkaline Phosphatase 59 U/L (45-117); Anion Gap 2 (5-15); BUN 17 mg/dL (7-18); BUN/Creat Ratio 25.4 RATIO (10-20); Calcium,Total 9.2 mg/dL (8.5-10.1); Chloride 105 mmol/L (98-107); Creatinine, Serum 0.67 mg/dL (0.55-1.02); EST Glomerular Filtration Rate 91 mL/min (>60); Est Glom Filt Rate - Afr Amer 110 mL/min (>60); Globulin 3.2 g/dL (2.2-4.2); Glucose 137 mg/dL (74-106); Potassium 3.2 mmol/L (3.5-5.1); Protein, Total 6.8 g/dL (6.4-8.2); Sodium Level 144 mmol/L (136-145)
--- NOTE | 2023-11-29 14:45 | RAD_ITS ---
STUDY: X-RAY CHEST REASON FOR EXAM: Female, 78 years old. Cough TECHNIQUE: PA and lateral views of the chest. COMPARISON: Comparison is made with prior study dated November 13, 2023. FINDINGS: EKG electrodes are seen. Stable increased interstitial markings more pronounced at the lung bases suggestive of scarring. There is no demonstrated pleural abnormality. Normal size heart. Normal mediastinum and [place]. Normal visualized pulmonary arteries. Normal visualized aortic arch and descending thoracic aorta. There is demineralization of the osseous structures. Dextroscoliosis. Normal visualized ribs, clavicles, and shoulders. Moderate-sized hiatal hernia. RAD/Chest PA and Lateral IMPRESSION: Stable increased interstitial markings suggestive of scarring. Moderate size hiatal hernia. Electronically Signed: Jules Jerry MD at 15:01 EST ,
[2023-11-29 15:30] VITALS: BP 100/44; PULSE 77; RESP 22; O2SAT 94
[2023-11-29 15:40] LABS: Bacteria 0 SEEN /hpf (None Seen); Mucous, Urine 0 SEEN /hpf (<or=2+); Red Blood Cells-Urine 0 SEEN /hpf (0-5); Squamous Epithelial Cells - UA 0 SEEN /hpf (5-10)
[2023-11-29 15:50] LABS: Color, Urine Yellow (Yellow); Glucose, Dipstick Normal (Normal); Ketone-Dipstick Negative (Negative); Leukocyte Esterase-Dipstick 100 /ul (Negative); Nitrite-Dipstick Negative (Negative); Occult Blood-Urine Negative /ul (Negative); Protein-Dipstick Negative (Negative); Specific Gravity, Urine 1.025 (1.002-1.030); Urine Bilirubin Dipstick Negative (Negative); Urine Clarity Clear (Clear); Urine Urobilinogen Normal (Normal)
[2023-11-29 16:14] LABS: White Blood Cells 0-5 SEEN /hpf (0-5)
[2023-11-29] MEDS: Potassium Chloride Oral Tablet 20 MEQ 40 MEQ PO (16:56)
[2023-11-29 16:58] VITALS: BP 112/63; PULSE 86; RESP 20; TEMP 36.9; O2SAT 98
== END 2023-11-29 17:31 | disposition home or self-care (01) ==
PROVIDERS: Emergency Provider Emergency Medicine; PCP Internal Medicine; Visit Provider Emergency Medicine
DX: F44.89 Other dissociative and conversion disorders (principal); F03.90 Unspecified dementia, unspecified severity, without behavioral disturbance, psychotic disturbance, mood disturbance, and anxiety; J44.9 Chronic obstructive pulmonary disease, unspecified; F31.9 Bipolar disorder, unspecified; E87.6 Hypokalemia; Z87.891 Personal history of nicotine dependence; Z99.81 Dependence on supplemental oxygen; Z86.73 Personal history of transient ischemic attack (TIA), and cerebral infarction without residual deficits; I10 Essential (primary) hypertension; Z85.3 Personal history of malignant neoplasm of breast; Z79.899 Other long term (current) drug therapy; Z90.710 Acquired absence of both cervix and uterus; Z90.49 Acquired absence of other specified parts of digestive tract; Z98.49 Cataract extraction status, unspecified eye
CPT/HCPCS: 70450; 71046; 80053; 81001; 85025; 87077; 87086; 87088; 87186; 93005; 96360; 96361; 99283; J7040